=== PATIENT | female | born 1960 | race Caucasian/White ===

== ENCOUNTER 2017-01-20 15:58 | Emergency (ER) | payer OTHER ==
[~2017-01-20] VITALS: Ht 162.6 cm; Wt 70.8 kg
[~2017-01-20 15:58] MED LIST: ALPR.5T PO; ESTR0.5T PO; IBP800T PO; LACT1CAP39 PO
[2017-01-20] MEDS ORDERED: CEFD300C3 (16:05)
--- NOTE | 2017-01-20 16:10 | ED GU-Female ---
General Chief Complaint: -Female Stated Complaint: BLADDER INFECTION Source: patient Exam Limitations: no limitations History of Present Illness Time seen by provider: 16:08 Initial Comments To ER with reports of a bladder infection. She states that this began on Sunday with low back pain, suprapubic pain, dysuria. She was seen on Sunday with the [facility] in [place]. She was initially given Cipro for urinary tract infection. Urine was sent for culture. No improvement so she went back on the and her antibiotic was changed to Omnicef. She still reports no improvement in the suprapubic pain and dysuria. She remains on Omnicef and Pyridium without improvement. No fevers or chills. No nausea or vomiting. She still states that she has a poor appetite. She also has bilateral flank pain. Timing/Duration: week, getting worse Severity/Quality: moderate Location: suprapubic, right flank, left flank Radiation: suprapubic, right flank, left flank Activities at Onset: none Prior Genitourinary Problems: none Allergies and Home Medications Allergies Coded Allergies: Metronidazole (Verified Allergy, Unknown, 10/07/09) Home Medications Alprazolam 0.5 Mg Tablet, 1 TAB PO DAILY, (Reported) Cefdinir 300 Mg Capsule, (Reported) Estradiol 0.5 Mg Tablet, 0.25 MG PO DAILY, (Reported) Ibuprofen 800 Mg Tab, 800 MG PO DAILY, (Reported) Lactobacillus Rhamnosus 1 Cap Capsule, 1 CAP PO DAILY, (Reported) Constitutional: see HPI EENTM: see HPI Respiratory: no symptoms reported Cardiovascular: no symptoms reported Genitourinary: no symptoms reported Musculoskeletal: no symptoms reported Skin: no symptoms reported Psychiatric/Neurological: No Symptoms Reported Past Qgtnimn-Pobyhe-Gfoqmf Hx Patient Social History Recent Foreign Travel: No Contact w/Someone Who Travel: No Reproductive System Hx Reproductive Disorders: No Physical Exam Vital Signs Vital Sign - Last 12Hours 01/20/17 16:02 Temp 99.1 Pulse 94 Resp 10 B/P (MAP) 139/86 Pulse Ox 96 O2 Delivery Room Air Capillary Refill : General Appearance: WD/WN, no apparent distress HEENT: PERRL/EOMI, normal ENT inspection Neck: non-tender, full range of motion Respiratory: normal breath sounds, no respiratory distress, no accessory muscle use Gastrointestinal: normal bowel sounds, non tender, soft Back: CVA tenderness (R), CVA tenderness (L) Extremities: normal range of motion, non-tender Neurologic/Psychiatric: alert, normal mood/affect, oriented x 3 Skin: normal color, warm/dry Progress/Results/Core Measures Results/Orders Lab Results Laboratory Tests Test 01/20/17 16:10 01/20/17 16:21 Range/Units Urine Color ORANGE Urine Clarity CLEAR Urine pH 6 5-9 Urine Specific Lindsay 1.020 1.016-1.022 Urine Protein 1+ H NEGATIVE Urine Glucose (UA) NEGATIVE NEGATIVE Urine Ketones NEGATIVE NEGATIVE Urine Nitrite POSITIVE H NEGATIVE Urine Bilirubin 3+ H NEGATIVE Urine Urobilinogen 12 H NORMAL MG/DL Urine Leukocyte Esterase NEGATIVE NEGATIVE Urine RBC (Auto) 1+ H NEGATIVE Urine RBC RARE /HPF Urine WBC NONE /HPF Urine Squamous Epithelial Cells 0-2 /HPF Urine Crystals NONE /LPF Urine Bacteria NEGATIVE /HPF Urine Casts NONE /LPF Urine Mucus NEGATIVE /LPF Urine Culture Indicated YES White Blood Count 13.3 H 4.3-11.0 10^3/uL Red Blood Count 4.60 4.35-5.85 10^6/uL Hemoglobin 14.4 11.5-16.0 G/DL Hematocrit 41 35-52 % Mean Corpuscular Volume 89 80-99 FL Mean Corpuscular Hemoglobin 31 25-34 PG Mean Corpuscular Hemoglobin Concent 35 32-36 G/DL Red Cell Distribution Width 13.2 10.0-14.5 % Platelet Count 233 130-400 10^3/uL Mean Platelet Volume 9.7 7.4-10.4 FL Neutrophils (%) (Auto) 61 42-75 % Lymphocytes (%) (Auto) 32 12-44 % Monocytes (%) (Auto) 6 0-12 % Eosinophils (%) (Auto) 1 0-10 % Basophils (%) (Auto) 0 0-10 % Neutrophils # (Auto) 8.1 H 1.8-7.8 X 10^3 Lymphocytes # (Auto) 4.2 H 1.0-4.0 X 10^3 Monocytes # (Auto) 0.8 0.0-1.0 X 10^3 Eosinophils # (Auto) 0.2 0.0-0.3 10^3/uL Basophils # (Auto) 0.0 0.0-0.1 10^3/uL Sodium Level 141 135-145 MMOL/L Potassium Level 3.4 L 3.6-5.0 MMOL/L Chloride Level 109 H 98-107 MMOL/L Carbon Dioxide Level 22 21-32 MMOL/L Anion Gap 10 5-14 MMOL/L Blood Urea Nitrogen 12 7-18 MG/DL Creatinine 0.98 0.60-1.30 MG/DL Estimat Glomerular Filtration Rate 59 BUN/Creatinine Ratio 12 Glucose Level 96 70-105 MG/DL Calcium Level 9.2 8.5-10.1 MG/DL Total Bilirubin 0.3 0.1-1.0 MG/DL Aspartate Amino Transf (AST/SGOT) 13 5-34 U/L Alanine Aminotransferase (ALT/SGPT) 15 0-55 U/L Alkaline Phosphatase 84 40-136 U/L Total Protein 6.6 6.4-8.2 GM/DL Albumin 3.9 3.2-4.5 GM/DL My Orders Orders - MYA ARORA POWER BRAKE REBUILDER Cbc With Automated Diff (01/20/17 16:07) Comprehensive Metabolic Panel (01/20/17 16:07) Ua Culture If Indicated (01/20/17 16:07) Saline Lock/Iv-Start (01/20/17 16:07) Ketorolac Injection (Toradol Injection) (01/20/17 16:15) Ns Iv 1000 Ml (Sodium Chloride 0.9%) (01/20/17 16:15) Urine Culture (01/20/17 16:10) Ct Abd/Pelvis Wo(Kidney Stone) (01/20/17 16:28) Amoxicillin/Clavulanate Tablet (Augmenti (01/20/17 17:15) Ondansetron Injection (Zofran Injectio (01/20/17 17:15) Hydrocodone/Apap 5/325 Tablet (Lortab 5 (01/20/17 17:15) Medications Given in ED Current Medications Medications Dose Ordered Sig/Erika Route Start Time Stop Time Status Last Admin Dose Admin Ketorolac Tromethamine 30 mg ONCE ONCE IVP 01/20/17 16:15 01/20/17 16:16 DC 01/20/17 16:24 30 MG Vital Signs/I&O Vital Sign - Last 12Hours 01/20/17 16:02 Temp 99.1 Pulse 94 Resp 10 B/P (MAP) 139/86 Pulse Ox 96 O2 Delivery Room Air Diagnostic Imaging Diagonstic Imaging: CT Comments NAME: NATALIYA [facility]LAN [facility] REC#: [id number] PT STATUS: REG ER : 1960 PHYSICIAN: MYA ARORA APRN ADMIT DATE: 01/20/17/ER Draft Date of Exam:01/20/17 CT ABD/PELVIS WO(KIDNEY STONE) PROCEDURE: CT urinary tract, rule out kidney stone. TECHNIQUE: Multiple contiguous axial images were obtained through the abdomen and pelvis without the use of intravenous contrast. INDICATION: Lower abdominal pain and bilateral flank pain. Comparison is made study of 08/31/2009. FINDINGS: Prominent interstitial markings are seen in the dependent portion of both lower lobes which may be due to mild edema and/or pneumonitis versus developing fibrosis. Unenhanced images of the liver again demonstrate probable cyst in the lateral segment of the left lobe without other change. Gallbladder is surgically absent. There is no evidence of pancreatic or splenic abnormality. There is enlargement of the left adrenal gland which has not significantly changed. Right adrenal gland is stable and unremarkable. Evaluation of the kidneys is limited without intravenous contrast however, there is no evidence of renal calculus, mass or hydronephrosis. No ureteric stone is appreciated. There is yuqj-dk-tydfneln edema and/or inflammation surrounding the descending colon however, no free air or organized fluid collection is identified. There are numerous diverticula involving primarily the left colon. No free fluid is identified. IMPRESSION: Inflammation of the left colon suggest probable acute diverticulitis without evidence of perforation or abscess. There is no evidence of urinary tract calculus or pelvic abnormality. There is mild increase in probable interstitial edema and/or pneumonitis visualized in the lung bases. Dictated on workstation # [id number] Dict: 01/20/17 1703 Trans: 01/20/17 1723 [id number] Interpreted by: RUSS LAM MD Electronically signed by: Departure Impression Impression: Primary Impression: Sigmoid diverticulitis Disposition: 01 HOME, SELF-CARE Condition: Stable Departure-Patient Inst. Decision time for Depature: 17:19 Referrals: BETTY IVY APRN (PCP/Family) Primary Care Physician Patient Instructions: Diverticulitis Add. Discharge Instructions: 1. Medication as directed 2. Follow-up with your doctor later this week 3. Return to ER for any concerns All discharge instructions reviewed with patient and/or family. Voiced understanding. Scripts Ondansetron (Zofran Odt) 8 Mg Tab.rapdis 8 MG PO Q6H Y for NAUSEA/VOMITING-1ST LINE, #10 TAB Prov: MYA ARORA APRN 01/20/17 Hydrocodone/Acetaminophen ([place] 5-325 Tablet) 1 Each Tablet 1 EACH PO Q6H Y for PAIN-MODERATE TO SEVERE, #14 TAB Prov: MYA ARORA APRN 01/20/17 Lactobacillus Rhamnosus GG (Culturelle) 1 Each Capsule 1 EACH PO BID, #30 CAP Prov: MYA ARORA APRN 01/20/17 Amoxicillin/Potassium Clav (Augmentin 875-125 Tablet) 1 Each Tablet 1 EACH PO BID, #14 TAB Prov: MYA ARORA APRN 01/20/17 MYA ARORA APRN Jan 20, 2017 16:10
[2017-01-20 16:17] LABS: KETONES,URINE NEGATIVE (NEGATIVE); LEUKOCYTE ESTERASE ,URINE NEGATIVE (NEGATIVE); NITRITE,URINE POSITIVE (NEGATIVE); PH,URINE 6 (5-9); PROTEIN,URINE 1+ (NEGATIVE); UROBILINOGEN,URINE 12 MG/DL (NORMAL)
[2017-01-20 16:21] LABS: BILIRUBIN,URINE 3+ (NEGATIVE)
[2017-01-20 16:23] LABS: SQUAMOUS EPITHELIAL CELL,UR 0-2 /HPF
[2017-01-20] MEDS: KETOROLAC 30 MG/ML VIAL IVP ONE (16:24)
[2017-01-20] MEDS: NS IV 1000 ML 1,000 ML IV SCH (16:24)
[2017-01-20 16:26] LABS: BASOPHILS % (AUTO) 0 % (0-10); EOSINOPHILS # (AUTO) 0.2 10^3/uL (0.0-0.3); EOSINOPHILS % (AUTO) 1 % (0-10); LYMPHOCYTES # (AUTO) 4.2 X 10^3 (1.0-4.0); LYMPHOCYTES % (AUTO) 32 % (12-44); MEAN CORPUSCULAR HEMOGLOBIN 31 PG (25-34); MEAN CORPUSCULAR HGB CONC 35 G/DL (32-36); MEAN CORPUSCULAR VOLUME 89 FL (80-99); MEAN PLATELET VOLUME 9.7 FL (7.4-10.4); MONOCYTES # (AUTO) 0.8 X 10^3 (0.0-1.0); MONOCYTES % (AUTO) 6 % (0-12); NEUTROPHILS # (AUTO) 8.1 X 10^3 (1.8-7.8); NEUTROPHILS % (AUTO) 61 % (42-75); PLATELET COUNT 233 10^3/uL (130-400); RED CELL DISTRIBUTION WIDTH 13.2 % (10.0-14.5); WHITE BLOOD COUNT 13.3 10^3/uL (4.3-11.0)
[2017-01-20 16:46] LABS: ALBUMIN 3.9 GM/DL (3.2-4.5); BILIRUBIN,TOTAL 0.3 MG/DL (0.1-1.0); CALCIUM 9.2 MG/DL (8.5-10.1); CREATININE SERUM 0.98 MG/DL (0.60-1.30); POTASSIUM 3.4 MMOL/L (3.6-5.0); TOTAL PROTEIN 6.6 GM/DL (6.4-8.2)
--- NOTE | 2017-01-20 17:23 | Diagnostic Imaging Report ---
PROCEDURE: CT urinary tract, rule out kidney stone. TECHNIQUE: Multiple contiguous axial images were obtained through the abdomen and pelvis without the use of intravenous contrast. INDICATION: Lower abdominal pain and bilateral flank pain. Comparison is made study of 08/31/2009. FINDINGS: Prominent interstitial markings are seen in the dependent portion of both lower lobes which may be due to mild edema and/or pneumonitis versus developing fibrosis. Unenhanced images of the liver again demonstrate probable cyst in the lateral segment of the left lobe without other change. Gallbladder is surgically absent. There is no evidence of pancreatic or splenic abnormality. There is enlargement of the left adrenal gland which has not significantly changed. Right adrenal gland is stable and unremarkable. Evaluation of the kidneys is limited without intravenous contrast however, there is no evidence of renal calculus, mass or hydronephrosis. No ureteric stone is appreciated. There is qfwi-ko-fetxxnhe edema and/or inflammation surrounding the descending colon however, no free air or organized fluid collection is identified. There are numerous diverticula involving primarily the left colon. No free fluid is identified. IMPRESSION: Inflammation of the left colon suggest probable acute diverticulitis without evidence of perforation or abscess. There is no evidence of urinary tract calculus or pelvic abnormality. There is mild increase in probable interstitial edema and/or pneumonitis visualized in the lung bases. Dictated by: Dictated on workstation # [id number]
[2017-01-20] MEDS ORDERED: AMOX-358 PO (17:27)
[2017-01-20] MEDS ORDERED: LACT1CAP39 PO (17:27)
[2017-01-20] MEDS ORDERED: HYDR-757 PO (17:27)
[2017-01-20] MEDS ORDERED: ONDA8TAB9 PO (17:27)
[2017-01-20] MEDS: ONDANSETRON 4 MG/2 ML (SDV) Z0FRAN IVP ONE (17:29)
[2017-01-20] MEDS: HYDROcodone/APAP 5 MG/325 MG (LORTAB) TAB PO ONE (17:29)
[2017-01-20] MEDS: AUGMENTIN 875 MG TAB (AMOXICILLIN/CLAVULANATE) PO SCH (17:29)
[2017-01-20] MEDS ORDERED: RX-AMOX/CLAV. (AUGMENTIN) 500MG TAB PPK#2 PO STA (17:39)
[2017-01-20 17:49] VITALS: BP 116/84
--- OUTSIDE RECORDS SUMMARY | 2017-01-22 10:19 | XMS REPORT ---
Author Author ANDRAE EDMONDSON Organization [employer] Address Unknown Phone Unavailable Care Team Providers Care Materials Handling Equipment Operator Name Role Phone ANDRAE EDMONDSON CP Unavailable Allergies, Adverse Reactions, Alerts Substance Reaction Event Type Flagyl anaphylaxis Drug Allergy Venlafaxine 37.5 Mg Tablet diarrhea Non Drug Allergy Problems Problem Type Condition ICD-9 Code Onset Dates Condition Status Problem Dysthymic disorder 300.4 Active Problem Unspecified genital herpes 054.10 Active Problem Muscle spasm of back 724.8 Active Problem Pain in joint, shoulder region 719.41 Active Assessment Muscle spasm of back 724.8 Active Medications Medication Code System Code Instructions Start Date End Date Status Dosage Meloxicam [facility] [address]-91 7.5 MG Orally Once a day Jan 27, 2015 1 tablet Vitamin D3 [facility] [address] 2,000 unit Mar 03, 2013 1 time per day Fluoxetine [facility] [address]-92 40 mg August 04, 2014 2 Capsule by Oral route 1 time per day Valtrex [facility] [address]-17 1 gram August 04, 2014 Take 1 Tablet by Oral route 1 time per day Flexeril [facility] [address]-05 10 MG Orally Three times a day Jan 27, 2015 1 tablet Omeprazole [facility] [address]-61 20 MG August 04, 2014 take 1 capsule ( 20 mg) by oral route once daily before a meal Procedures Procedure Coding System Code Date Office Visit, Est Pt., Level 3 CPT-4 20313 Jan 27, 2015 Results No Known Results Summary Purpose [employer] Submission
--- OUTSIDE RECORDS SUMMARY | 2017-01-22 10:19 | XMS REPORT ---
Author Author ANDRAE EDMONDSON Organization [employer] Address Unknown Phone Unavailable Care Team Providers Care Groundskeeper Porter Name Role Phone ANDRAE EDMONDSON CP Unavailable Allergies No Known Allergies Problems Problem Type Condition Code Onset Dates Condition Status Problem Dysthymic disorder 300.4 Active Problem Unspecified genital herpes 054.10 Active Problem Muscle spasm of back 724.8 Active Problem Pain in joint, shoulder region 719.41 Active Medications Medication Code System Code Instructions Start Date End Date Status Dosage Omeprazole [facility] [address]-97 20 MG Orally Once a day August 04, 2014 take 1 capsule Results No Known Results Summary Purpose [employer] Submission
--- OUTSIDE RECORDS SUMMARY | 2017-01-22 10:19 | XMS REPORT ---
Author Author ANDRAE EDMONDSON Organization [employer] Address Unknown Phone Unavailable Care Team Providers Care Battery Repairer Name Role Phone ANDRAE EDMONDSON CP Unavailable Allergies No Known Allergies Problems Problem Type Condition Code Onset Dates Condition Status Problem Dysthymic disorder 300.4 Active Problem Unspecified genital herpes 054.10 Active Problem Muscle spasm of back 724.8 Active Problem Pain in joint, shoulder region 719.41 Active Assessment Encounter for immunization Z23 Active Medications No Known Medications Procedures Procedure Coding System Code Date SINGLE IMMUNIZATION ADMIN CPT-4 24440 Mar 22, 2015 FLUARIX QUAD (3 & UP)-GSK-2014 CPT-4 19009 Mar 22, 2015 Results No Known Results Immunizations Vaccine Administration Date FLUARIX QUAD (3 & UP)-GSK-2014Mar 22, 2015 Summary Purpose [employer] Submission
--- OUTSIDE RECORDS SUMMARY | 2017-01-22 10:19 | XMS REPORT | Continuity of Care Document ---
Author Author [facility] Address Unknown Phone Unavailable Allergies Active Description Code Type Severity Reaction Onset Reported/Identified Relationship to Patient Clinical Status Yes Flagyl Drug Allergy N/A N/A 03/03/2013 Yes venlafaxine 37.5 mg tablet Drug Allergy N/A N/A 10/21/2013 Medications Problems Date Dx Coded Attending Type Code Diagnosis Diagnosed By 12/10/2007 WOODS DO, KATIA K 300.00 ANXIETY 12/10/2007 WOODS DO, KATIA K 300.00 ANXIETY 12/10/2007 COMFORT HURLEY DDS 300.00 ANXIETY 12/10/2007 WOODS DO, KATIA K 300.00 ANXIETY 12/10/2007 WOODS DO, KATIA K 300.00 ANXIETY 12/10/2007 WOODS DO, KATIA K 300.00 ANXIETY 12/10/2007 ANDRAE EDMONDSON APRN 300.00 ANXIETY 12/10/2007 WOODS DO, KATIA K 300.00 ANXIETY 12/10/2007 WOODS DO, KATIA K 300.00 ANXIETY 12/10/2007 WOODS DO, KATIA K 300.00 ANXIETY 12/10/2007 ANDRAE EDMONDSON APRN 300.00 ANXIETY 12/10/2007 WOODS DO, KATIA K 300.00 ANXIETY 12/10/2007 WOODS DO, KATIA K 300.00 ANXIETY 05/19/2008 WOODS DO, KATIA K 112.3 CANDIDIASIS SKIN AND NAILS 05/19/2008 WOODS DO, KATIA K 616.10 VAGINITIS AND VULVOVAGINITIS UNSPECIFIED 05/19/2008 WOODS DO, KATIA K 112.3 CANDIDIASIS SKIN AND NAILS 05/19/2008 WOODS DO, KATIA K 616.10 VAGINITIS AND VULVOVAGINITIS UNSPECIFIED 05/19/2008 COMFORT HURLEY DDS 112.3 CANDIDIASIS SKIN AND NAILS 05/19/2008 COMFORT HURLEY DDS 616.10 VAGINITIS AND VULVOVAGINITIS UNSPECIFIED 05/19/2008 PEGGY BUTTS KATIA K 112.3 CANDIDIASIS SKIN AND NAILS 05/19/2008 PEGGY BUTTS KATIA K 616.10 VAGINITIS AND VULVOVAGINITIS UNSPECIFIED 05/19/2008 PEGGY BUTTS KATIA K 112.3 CANDIDIASIS SKIN AND NAILS 05/19/2008 WOODS DO KATIA K 616.10 VAGINITIS AND VULVOVAGINITIS UNSPECIFIED 05/19/2008 PEGGY BUTTS KATIA K 112.3 CANDIDIASIS SKIN AND NAILS 05/19/2008 KELSEY WOODS DOA K 616.10 VAGINITIS AND VULVOVAGINITIS UNSPECIFIED 05/19/2008 ANDRAE EDMONDSON APRN 112.3 CANDIDIASIS SKIN AND NAILS 05/19/2008 ANDRAE EDMONDSON APRN 616.10 VAGINITIS AND VULVOVAGINITIS UNSPECIFIED 05/19/2008 KELSEY WOODS DOA K 112.3 CANDIDIASIS SKIN AND NAILS 05/19/2008 KELSEY WOODS DOA K 616.10 VAGINITIS AND VULVOVAGINITIS UNSPECIFIED 05/19/2008 KELSEY WOODS DOA K 112.3 CANDIDIASIS SKIN AND NAILS 05/19/2008 KELSEY WOODS DOA K 616.10 VAGINITIS AND VULVOVAGINITIS UNSPECIFIED 05/19/2008 KELSEY WOODS DOA K 112.3 CANDIDIASIS SKIN AND NAILS 05/19/2008 KELSEY WOODS DOA K 616.10 VAGINITIS AND VULVOVAGINITIS UNSPECIFIED 05/19/2008 ANDRAE EDMONDSON APRN R 112.3 CANDIDIASIS SKIN AND NAILS 05/19/2008 ANDRAE EDMONSDON APRN 616.10 VAGINITIS AND VULVOVAGINITIS UNSPECIFIED 05/19/2008 PEGGY BUTTS KATIA K 112.3 CANDIDIASIS SKIN AND NAILS 05/19/2008 PEGGY BUTTS KATIA K 616.10 VAGINITIS AND VULVOVAGINITIS UNSPECIFIED 05/19/2008 PEGGY BUTTS KATIA K 112.3 CANDIDIASIS SKIN AND NAILS 05/19/2008 PEGGY BUTTS KATIA K 616.10 VAGINITIS AND VULVOVAGINITIS UNSPECIFIED 06/10/2008 PEGGY BUTTS KATIA K 599.70 HEMATURIA, UNSPECIFIED 06/10/2008 KELSEY WOODS DOA K 789.00 COLIC INFANTILE 06/10/2008 WOODS DO, KATIA K 599.70 HEMATURIA, UNSPECIFIED 06/10/2008 WOODS DO, KATIA K 789.00 COLIC INFANTILE 06/10/2008 XAVI ORTIZS, COMFORT Perez 599.70 HEMATURIA, UNSPECIFIED 06/10/2008 XAVI DDS, COMFORT Perez 789.00 COLIC INFANTILE 06/10/2008 WOODS DO, KATIA K 599.70 HEMATURIA, UNSPECIFIED 06/10/2008 WOODS DO, KATIA K 789.00 COLIC INFANTILE 06/10/2008 WOODS DO, KATIA K 599.70 HEMATURIA, UNSPECIFIED 06/10/2008 WOODS DO, KATIA K 789.00 COLIC INFANTILE 06/10/2008 WOODS DO, KATIA K 599.70 HEMATURIA, UNSPECIFIED 06/10/2008 WOODS DO, KATIA K 789.00 COLIC INFANTILE 06/10/2008 ANDRAE EDMONDSON APRN 599.70 HEMATURIA, UNSPECIFIED 06/10/2008 ANDREA EDMONDSON APRN 789.00 COLIC INFANTILE 06/10/2008 WOODS DO, KATIA K 599.70 HEMATURIA, UNSPECIFIED 06/10/2008 WOODS DO, KATIA K 789.00 COLIC INFANTILE 06/10/2008 WOODS DO, KATIA K 599.70 HEMATURIA, UNSPECIFIED 06/10/2008 WOODS DO, KATIA K 789.00 COLIC INFANTILE 06/10/2008 WOODS DO, KATIA K 599.70 HEMATURIA, UNSPECIFIED 06/10/2008 WOODS DO, KATIA K 789.00 COLIC INFANTILE 06/10/2008 ANDRAE EDMONDSON APRN 599.70 HEMATURIA, UNSPECIFIED 06/10/2008 ANDRAE EDMONDSON APRN 789.00 COLIC INFANTILE 06/10/2008 WOODS DO, KATIA K 599.70 HEMATURIA, UNSPECIFIED 06/10/2008 WOODS DO, KATIA K 789.00 COLIC INFANTILE 06/10/2008 WOODS DO, KATIA K 599.70 HEMATURIA, UNSPECIFIED 06/10/2008 WOODS DO, KATIA K 789.00 COLIC INFANTILE 02/07/2013 WOODS DO, KATIA K V04.81 FLU SHOT 02/07/2013 WOODS DO, KATIA K V04.81 FLU SHOT 02/07/2013 XAVI ORTIZS, COMFORT Perez V04.81 FLU SHOT 02/07/2013 WOODS DO, KATIA K V04.81 FLU SHOT 02/07/2013 WOODS DO, KATIA K V04.81 FLU SHOT 02/07/2013 WOODS DO, KATIA K V04.81 FLU SHOT 02/07/2013 ANDRAE EDMONDSON APRN V04.81 FLU SHOT 02/07/2013 WOODS DO, KATIA K V04.81 FLU SHOT 02/07/2013 WOODS DO, KATIA K V04.81 FLU SHOT 02/07/2013 WOODS DO, KATIA K V04.81 FLU SHOT 02/07/2013 ANDRAE EDMONDSON APRN V04.81 FLU SHOT 02/07/2013 WOODS DO, KATIA K V04.81 FLU SHOT 02/07/2013 WOODS DO, KATIA K V04.81 FLU SHOT 03/03/2013 WOODS DO, KATIA K 599.0 URINARY TRACT INFECTION 03/03/2013 WOODS DO, KATIA K 599.0 URINARY TRACT INFECTION 03/03/2013 COMFORT HURLEY DDS 599.0 URINARY TRACT INFECTION 03/03/2013 WOODS DO, KATIA K 599.0 URINARY TRACT INFECTION 03/03/2013 WOODS DO, KATIA K 599.0 URINARY TRACT INFECTION 03/03/2013 WOODS DO, KATIA K 599.0 URINARY TRACT INFECTION 03/03/2013 ANDRAE EDMONDSON APRN 599.0 URINARY TRACT INFECTION 03/03/2013 WOODS DO, KATIA K 599.0 URINARY TRACT INFECTION 03/03/2013 WOODS DO, KATIA K 599.0 URINARY TRACT INFECTION 03/03/2013 WOODS DO, KATIA K 599.0 URINARY TRACT INFECTION 03/03/2013 ANDRAE EDMONDSON APRN 599.0 URINARY TRACT INFECTION 03/03/2013 WOODS DO, KATIA K 599.0 URINARY TRACT INFECTION 03/03/2013 WOODS DO, KATIA K 599.0 URINARY TRACT INFECTION 08/08/2013 WOODS DO, KATIA K 596.89 OTHER SPECIFIED DISORDERS OF BLADDER 08/08/2013 WOODS DO, KATIA K 596.89 OTHER SPECIFIED DISORDERS OF BLADDER 08/08/2013 WOODS DO, KATIA K 596.89 OTHER SPECIFIED DISORDERS OF BLADDER 08/08/2013 ANDRAE EDMONDSON APRN 596.89 OTHER SPECIFIED DISORDERS OF BLADDER 08/08/2013 KATIA WOODS DO 596.89 OTHER SPECIFIED DISORDERS OF BLADDER 08/08/2013 KATIA WOODS DO 596.89 OTHER SPECIFIED DISORDERS OF BLADDER 08/08/2013 WOODS DOKATIA 596.89 OTHER SPECIFIED DISORDERS OF BLADDER 08/08/2013 ANDRAE EDMONDSON APRN 596.89 OTHER SPECIFIED DISORDERS OF BLADDER 08/08/2013 KATIA WOODS DO 596.89 OTHER SPECIFIED DISORDERS OF BLADDER 08/08/2013 WOODS DOKATIA 596.89 OTHER SPECIFIED DISORDERS OF BLADDER 09/18/2013 PEGGY DOKATIA V06.1 TDAP DX 09/18/2013 ANDRAE EDMONDSON APRN V06.1 TDAP DX 09/18/2013 WOODS DOKATIA V06.1 TDAP DX 09/18/2013 WOODS DOKATIA V06.1 TDAP DX 09/18/2013 WOODS DOKATIA V06.1 TDAP DX 09/18/2013 ANDRAE EDMONDSON APRN V06.1 TDAP DX 09/18/2013 WOODS DOKATIA V06.1 TDAP DX 09/18/2013 WOODS DOKATIA V06.1 TDAP DX 01/29/2014 KATIA WOODS DO 054.10 HERPES SIMPLEX GENITAL 01/29/2014 ANDRAE EDMONDSON APRN 054.10 HERPES SIMPLEX GENITAL 01/29/2014 KATIA WOODS DO 054.10 HERPES SIMPLEX GENITAL 01/29/2014 KATIA WOODS DO 054.10 HERPES SIMPLEX GENITAL 06/03/2014 KATIA WOODS DO 719.41 PAIN- SHOULDER 06/03/2014 KATIA WOODS DO 719.41 PAIN- SHOULDER Procedures Code [place] [address] UA LONG DIP 03/03 51991 UA LONG DIP 03/17 98161 UA LONG DIP 08/08 44612 UA LONG DIP 11/10 Results Encounters ACCT No. Visit Date/Time Discharge Status Pt. Type Provider Facility Loc./Unit Complaint [id number] 07/08/2014 15:55:00 07/08/2014 23: 59:59 CLS Outpatient KATIA WOODS DO [id number] 06/03/2014 16:10:00 06/03/2014 23: 59:59 CLS Outpatient WOODS DOKATIA [id number] 03/03/2014 16:26:00 03/03/2014 23: 59:59 CLS Outpatient ANDRAE EDMONDSON APRN Sussy [id number] 01/29/2014 15:58:00 01/29/2014 23: 59:59 CLS Outpatient WOODS DOKATIA [id number] 12/29/2013 15:58:00 12/29/2013 23: 59:59 CLS Outpatient WOODS DOKATIA [id number] 11/10/2013 16:06:00 11/10/2013 23: 59:59 CLS Outpatient WOODS DOKATIA [id number] 10/21/2013 15:39:00 10/21/2013 23: 59:59 CLS Outpatient ANDRAE EDMONDSON APRN Sussy [id number] 09/18/2013 16:45:00 09/18/2013 23: 59:59 CLS Outpatient WOODS DOKATIA [id number] 08/21/2013 08:45:00 08/21/2013 23: 59:59 CLS Outpatient WOODS DOKATIA [id number] 08/08/2013 08:16:00 08/08/2013 23: 59:59 CLS Outpatient WOODS DOKATIA [id number] 05/29/2013 15:30:00 05/29/2013 23: 59:59 CLS Outpatient XAVI COMFORT AVILA [id number] 03/17/2013 16:21:00 03/17/2013 23: 59:59 CLS Outpatient WOODS DOKATIA [id number] 03/03/2013 15:12:00 03/03/2013 23: 59:59 CLS Outpatient WOODS DOKATIA
== END 2017-01-20 17:48 | disposition home or self-care (01) ==
LOC: EDUNIT# 15:58 → ER 16:01
DX: K57.32 Diverticulitis of large intestine without perforation or abscess without bleeding (principal)
CPT/HCPCS: 36415; 74176; 80053; 81000; 85025; 87088

== ENCOUNTER 2017-01-27 11:46 | Inpatient (IN) | payer OTHER ==
[~2017-01-27] VITALS: Ht 162.6 cm; Wt 67.2 kg
[~2017-01-27 11:46] MED LIST changes: +AMOX-358 PO; +CEFD300C3; +HYDR-757 PO; +ONDA8TAB9 PO
[2017-01-27] MEDS ORDERED: PHEN-827 PO (12:10)
[2017-01-27 12:20] LABS: BILIRUBIN,URINE NEGATIVE (NEGATIVE); KETONES,URINE NEGATIVE (NEGATIVE); LEUKOCYTE ESTERASE ,URINE NEGATIVE (NEGATIVE); NITRITE,URINE NEGATIVE (NEGATIVE); PH,URINE 8 (5-9); PROTEIN,URINE NEGATIVE (NEGATIVE); UROBILINOGEN,URINE NORMAL (NORMAL)
[2017-01-27] MEDS ORDERED: NS IV 1000 ML 1,000 ML IV ONE (12:45)
[2017-01-27] MEDS ORDERED: fentaNYL INJECTION 100 MCG/2 ML AMP IVP ONE ×2 (12:45→14:15)
[2017-01-27 12:51] LABS: BASOPHILS % (AUTO) 0 % (0-10); EOSINOPHILS # (AUTO) 0.1 10^3/uL (0.0-0.3); EOSINOPHILS % (AUTO) 1 % (0-10); LYMPHOCYTES # (AUTO) 3.5 X 10^3 (1.0-4.0); LYMPHOCYTES % (AUTO) 29 % (12-44); MEAN CORPUSCULAR HEMOGLOBIN 30 PG (25-34); MEAN CORPUSCULAR HGB CONC 35 G/DL (32-36); MEAN CORPUSCULAR VOLUME 88 FL (80-99); MEAN PLATELET VOLUME 10.2 FL (7.4-10.4); MONOCYTES # (AUTO) 0.6 X 10^3 (0.0-1.0); MONOCYTES % (AUTO) 5 % (0-12); NEUTROPHILS % (AUTO) 66 % (42-75); PLATELET COUNT 299 10^3/uL (130-400); RED BLOOD COUNT 4.73 10^6/uL (4.35-5.85); RED CELL DISTRIBUTION WIDTH 12.6 % (10.0-14.5); WHITE BLOOD COUNT 12.3 10^3/uL (4.3-11.0)
[2017-01-27 13:03] LABS: ALANINE AMINOTRANSFERASE 23 U/L (0-55); ALBUMIN 4.1 GM/DL (3.2-4.5); ANION GAP 13 MMOL/L (5-14); ASPARTATE AMINO TRANSFERASE 17 U/L (5-34); BILIRUBIN,TOTAL 0.6 MG/DL (0.1-1.0); BLOOD UREA NITROGEN 12 MG/DL (7-18); BUN/CREATININE RATIO 14; CALCIUM 9.9 MG/DL (8.5-10.1); CARBON DIOXIDE 21 MMOL/L (21-32); CHLORIDE 106 MMOL/L (98-107); CREATININE SERUM 0.88 MG/DL (0.60-1.30); GFR ESTIMATED > 60; GLUCOSE 97 MG/DL (70-105); LIPASE 22 U/L (8-78); POTASSIUM 3.5 MMOL/L (3.6-5.0); SODIUM 140 MMOL/L (135-145); TOTAL PROTEIN 6.8 GM/DL (6.4-8.2); hs C REACTIVE PROTEIN 7.71 MG/DL (0.00-0.50)
--- NOTE | 2017-01-27 13:19 | Diagnostic Imaging Report ---
INDICATION: Lower abdominal pain. COMPARISON: None. FINDINGS: KUB and upright views of the abdomen demonstrate some minimally distended small bowel in the mid abdomen, probably ileus. Obstruction not excluded. There is no free air. The colon is decompressed. IMPRESSION: 1. Small bowel obstruction versus ileus. 2. No free air. 3. Postoperative changes within the pelvis and cholecystectomy. Dictated by: Dictated on workstation # [id number]
[2017-01-27] MEDS ORDERED: IOHEXOL 350 MG/ML 100 ML (OMNIPAQUE 350) VIAL IV ONE (14:15)
[2017-01-27] MEDS ORDERED: NS 100 ML (IVPB) BAG IV ONE (14:15)
--- NOTE | 2017-01-27 14:50 | Diagnostic Imaging Report ---
PROCEDURE: CT abdomen and pelvis with contrast. TECHNIQUE: Multiple contiguous axial images were obtained through the abdomen and pelvis after administration of intravenous contrast. INDICATION: Lower abdominal pain. COMPARISON: 01/20/2017. FINDINGS: Lung bases are clear. There is a benign liver cyst again seen. Otherwise, solid organs and vascular structures are normal. Gallbladder is surgically absent. The small bowel normal. There is some increasing inflammation in the left lower quadrant with bowel wall thickening consistent with worsening diverticulitis. There is no abscess. There is new trace free fluid in the pelvis. The uterus is surgically absent. Distal ureters and urinary bladder normal. There is no free air. Osseous structures are stable. IMPRESSION: 1. Worsening diverticulitis of the sigmoid colon without abscess or free air. 2. New minimal amount of ascites in the pelvis, likely reactive. 3. No bowel obstruction. Dictated by: Dictated on workstation # [id number]
--- NOTE | 2017-01-27 15:09 | ED Abdominal Pain ---
General Chief Complaint: -Female Stated Complaint: ABD PAIN, CANT URINATE Nursing Triage Note: Was here last week for same issue. C/O inability to urinate, pain to low back, burning. States colon was inflammed and bladder dropped. abd "bloated" Sepsis Screen: No Definite Risk Source of Information: Patient, Old Records Exam Limitations: No Limitations History of Present Illness Time Seen By Provider: 11:49 Initial Comments This 56-year-old woman presents to the emergency room with complaints of worsening abdominal pain and bloating after being diagnosed with diverticulitis on January 18 during a visit to the emergency room. CT scan was performed at that time. She has been on Augmentin for 6 days but her symptoms worsen despite. She also complains of difficulty urinating which has been a long-term problem for her and is exacerbated by this illness. She reports having to force her urine output. She states her bloating has become extreme. She thought she was constipated and took some laxatives. She had a large bowel movement a couple days ago followed by some diarrhea. She had a small amount of diarrhea this morning. She denies any hematochezia. Her last solid food was toast at 07:00. She has been drinking tea throughout the morning. She denies any fever. Allergies and Home Medications Allergies Coded Allergies: metronidazole (Verified Allergy, Unknown, 01/27/17) Home Medications Alprazolam 0.5 Mg Tablet, 1 TAB PO DAILY, (Reported) Amoxicillin/Potassium Clav 1 Each Tablet, 1 EACH PO BID, #14 Prescribed by: MYA ARORA on 01/20/171726 Estradiol 0.5 Mg Tablet, 0.25 MG PO DAILY, (Reported) Hydrocodone/Acetaminophen 1 Each Tablet, 1 EACH PO Q6H PRN for PAIN-MODERATE TO SEVERE, #14 Prescribed by: MYA ARORA on 01/20/171726 Ibuprofen 800 Mg Tab, 800 MG PO DAILY, (Reported) Lactobacillus Rhamnosus 1 Cap Capsule, 1 CAP PO DAILY, (Reported) Lactobacillus Rhamnosus GG 1 Each Capsule, 1 EACH PO BID, #30 Prescribed by: MYA ARORA on 01/20/171726 Ondansetron 8 Mg Tab.rapdis, 8 MG PO Q6H PRN for NAUSEA/VOMITING-1ST LINE, #10 Prescribed by: MYA ARORA on 01/20/171726 Phenazopyridine HCl 200 Mg Tablet, (Reported) Review of Systems Constitutional: no symptoms reported EENTM: No Symptoms Reported Respiratory: No Symptoms Reported Cardiovascular: No Symptoms Reported Gastrointestinal: See HPI Genitourinary: See HPI Musculoskeletal: no symptoms reported Skin: no symptoms reported Psychiatric/Neurological: No Symptoms Reported Endocrine: No Symptoms Reported Past Dmplqam-Joemgi-Rnxubs Hx Patient Social History Alcohol Use: Occasionally Uses Recreational Drug Use: No Smoking Status: Current Everyday Smoker Type Used: Cigarettes 2nd Hand Smoke Exposure: No Recent Foreign Travel: No Contact w/Someone Who Travel: No Recent Infectious Disease Expo: No Recent Hopitalizations: No Physical Abuse: No Sexual Abuse: No Mistreated: No Fear: No Immunizations Up To Date Tetanus Booster (TDap): Unknown Seasonal Allergies Seasonal Allergies: No Surgeries History of Surgeries: Yes Surgeries: Gallbladder, Hysterectomy, Orthopedic Respiratory History of Respiratory Disorde: No Cardiovascular History of Cardiac Disorders: No Neurological History of Neurological Disord: No Reproductive System Hx Reproductive Disorders: No Sexually Transmitted Disease: No Gastrointestinal History of Gastrointestinal Di: No Musculoskeletal History of Musculoskeletal Dis: Yes (ARTHRITIS) Endocrine History of Endocrine Disorders: No HEENT History of HEENT Disorders: No Cancer History of Cancer: No Psychosocial History of Psychiatric Problem: No Suicide Risk Score: 0 Integumentary History of Skin or Integumenta: No Blood Transfusions History of Blood Disorders: No Family Medical History Significant Family History: No Pertinent Family Hx Physical Exam Vital Signs VS - Last 72 Hours, by Label 01/27/17 12:02 Temp 98.0 Pulse 73 Resp 18 B/P (MAP) 120/70 Pulse Ox 99 Capillary Refill : Less Than 3 Seconds General Appearance: WD/WN, no apparent distress HEENT: PERRL/EOMI, normal ENT inspection Neck: normal inspection Respiratory: lungs clear, normal breath sounds, no respiratory distress, no accessory muscle use Cardiovascular: regular rate, rhythm, no edema, no murmur Gastrointestinal: normal bowel sounds, soft, distended, tenderness ( significant tenderness throughout the abdomen even with light percussion) Extremities: normal inspection, no pedal edema Back: normal inspection, no CVA tenderness Neurologic/Psychiatric: folded cloth taper II-XII nml as tested, no motor/sensory deficits, alert, normal mood/affect, oriented x 3 Skin: normal color, warm/dry Progress/Results/Core Measures Results/Orders Lab Results Laboratory Tests Test 01/27/17 12:00 01/27/17 12:15 Range/Units Urine Color YELLOW Urine Clarity CLEAR Urine pH 8 5-9 Urine Specific [place] 1.010 L 1.016-1.022 Urine Protein NEGATIVE NEGATIVE Urine Glucose (UA) NEGATIVE NEGATIVE Urine Ketones NEGATIVE NEGATIVE Urine Nitrite NEGATIVE NEGATIVE Urine Bilirubin NEGATIVE NEGATIVE Urine Urobilinogen NORMAL NORMAL MG/DL Urine Leukocyte Esterase NEGATIVE NEGATIVE Urine RBC (Auto) 2+ H NEGATIVE Urine RBC 2-5 H /HPF Urine WBC NONE /HPF Urine Squamous Epithelial Cells NONE /HPF Urine Crystals NONE /LPF Urine Bacteria TRACE /HPF Urine Casts NONE /LPF Urine Mucus NEGATIVE /LPF Urine Culture Indicated NO White Blood Count 12.3 H 4.3-11.0 10^3/uL Red Blood Count 4.73 4.35-5.85 10^6/uL Hemoglobin 14.4 11.5-16.0 G/DL Hematocrit 42 35-52 % Mean Corpuscular Volume 88 80-99 FL Mean Corpuscular Hemoglobin 30 25-34 PG Mean Corpuscular Hemoglobin Concent 35 32-36 G/DL Red Cell Distribution Width 12.6 10.0-14.5 % Platelet Count 299 130-400 10^3/uL Mean Platelet Volume 10.2 7.4-10.4 FL Neutrophils (%) (Auto) 66 42-75 % Lymphocytes (%) (Auto) 29 12-44 % Monocytes (%) (Auto) 5 0-12 % Eosinophils (%) (Auto) 1 0-10 % Basophils (%) (Auto) 0 0-10 % Neutrophils # (Auto) 8.0 H 1.8-7.8 X 10^3 Lymphocytes # (Auto) 3.5 1.0-4.0 X 10^3 Monocytes # (Auto) 0.6 0.0-1.0 X 10^3 Eosinophils # (Auto) 0.1 0.0-0.3 10^3/uL Basophils # (Auto) 0.0 0.0-0.1 10^3/uL Sodium Level 140 135-145 MMOL/L Potassium Level 3.5 L 3.6-5.0 MMOL/L Chloride Level 106 98-107 MMOL/L Carbon Dioxide Level 21 21-32 MMOL/L Anion Gap 13 5-14 MMOL/L Blood Urea Nitrogen 12 7-18 MG/DL Creatinine 0.88 0.60-1.30 MG/DL Estimat Glomerular Filtration Rate > 60 BUN/Creatinine Ratio 14 Glucose Level 97 70-105 MG/DL Calcium Level 9.9 8.5-10.1 MG/DL Total Bilirubin 0.6 0.1-1.0 MG/DL Aspartate Amino Transf (AST/SGOT) 17 5-34 U/L Alanine Aminotransferase (ALT/SGPT) 23 0-55 U/L Alkaline Phosphatase 83 40-136 U/L C-Reactive Protein High Sensitivity 7.71 H 0.00-0.50 MG/DL Total Protein 6.8 6.4-8.2 GM/DL Albumin 4.1 3.2-4.5 GM/DL Lipase 22 8-78 U/L My Orders Orders - QUE SMITH MD Ua Culture If Indicated (01/27/17 11:49) Cbc With Automated Diff (01/27/17 12:45) Comprehensive Metabolic Panel (01/27/17 12:45) Hs C Reactive Protein (01/27/17 12:45) Saline Lock/Iv-Start (01/27/17 12:45) Bladder Scan (01/27/17 12:45) Abdomen, Flat & Upright/Decub (01/27/17 12:45) Lipase (01/27/17 12:45) Ns Iv 1000 Ml (Sodium Chloride 0.9%) (01/27/17 12:45) Fentanyl Injection (Sublimaze Injection (01/27/17 12:45) Fentanyl Injection (Sublimaze Injection (01/27/17 14:15) Ct Abdomen/Pelvis W (01/27/17 14:13) Iohexol Injection (Omnipaque 350 Mg/Ml 1 (01/27/17 14:15) Ns (Ivpb) (Sodium Chloride 0.9% Ivpb Bag (01/27/17 14:15) Piperacillin Sodium/Tazobactam (Zosyn Vi (01/27/17 15:15) Ketorolac Injection (Toradol Injection) (01/27/17 15:15) Medications Given in ED Current Medications Medications Dose Ordered Sig/Erika Route Start Time Stop Time Status Last Admin Dose Admin Fentanyl Citrate 50 mcg ONCE ONCE IVP 01/27/17 12:45 01/27/17 12:48 DC 01/27/17 12:53 50 MCG Fentanyl Citrate 50 mcg ONCE ONCE IVP 01/27/17 14:15 01/27/17 14:16 DC 01/27/17 14:04 50 MCG Iohexol 100 ml ONCE ONCE IV 01/27/17 14:15 01/27/17 14:21 DC 01/27/17 14:26 100 ML Ketorolac Tromethamine 30 mg ONCE ONCE IVP 01/27/17 15:15 01/27/17 15:16 DC 01/27/17 15:32 30 MG Piperacillin Sod/ Tazobactam Sod 4.5 gm/Sodium Chloride 100 ml @ 200 mls/hr ONCE ONCE IV 01/27/17 15:15 01/27/17 15:44 DC 01/27/17 15:32 200 MLS/HR Sodium Chloride 100 ml ONCE ONCE IV 01/27/17 14:15 01/27/17 14:21 DC 01/27/17 14:26 80 ML Sodium Chloride 1,000 ml @ 0 mls/hr Q0M ONCE IV 01/27/17 12:45 01/27/17 12:48 DC 01/27/17 12:53 1,000 MLS/HR Vital Signs/I&O Vital Sign - Last 12Hours 01/27/17 12:02 Temp 98.0 Pulse 73 Resp 18 B/P (MAP) 120/70 Pulse Ox 99 Blood Pressure Mean: 87 Progress Note : Progress Note Patient's lab work revealed persistent signs of infection with leukocytosis and elevated CRP. KUB and upright was performed which was suggestive of ileus versus small bowel obstruction. Case was reviewed with Dr. Hernandez who advised repeating the CT scan. Repeat CT scan showed no evidence of ileus or obstruction but did demonstrate worsening diverticulitis. Patient was treated with fentanyl and Toradol. IV fluids were administered. Zosyn was started for initial antibiotic therapy. Cipro and Flagyl were not used as patient has a Flagyl allergy. Admission was felt appropriate as patient has worsening symptoms despite antibiotic therapy at home. Diagnostic Imaging Comments X-ray viewed by me and report reviewed. See report below: NAME: NATALIYA WHELAN [facility] REC#: [id number] PT STATUS: REG ER : 1960 PHYSICIAN: QUE SMITH MD ADMIT DATE: 01/27/17/ER Signed Date of Exam: 01/27/17 ABDOMEN, FLAT & UPRIGHT/DECUB INDICATION: Lower abdominal pain. COMPARISON: None. FINDINGS: KUB and upright views of the abdomen demonstrate some minimally distended small bowel in the mid abdomen, probably ileus. Obstruction not excluded. There is no free air. The colon is decompressed. IMPRESSION: 1. Small bowel obstruction versus ileus. 2. No free air. 3. Postoperative changes within the pelvis and cholecystectomy. Dictated by: Dictated on workstation # [id number] Dict: 01/27/17 1310 Trans: 01/27/17 1443 Interpreted by: LESLEY AMBROSIO Electronically signed by: LESLEY AMBROSIO 01/27/17 1444 Diagonstic Imaging: CT Plain Films/CT/US/NM/MRI: abdomen, pelvis Comments CT abdomen and pelvis viewed by me and report reviewed. See report below: NAME: NATALIYA WHELAN [facility] REC#: [id number] PT STATUS: REG ER : 1960 PHYSICIAN: QUE SMITH MD ADMIT DATE: 01/27/17/ER Draft Date of Exam:01/27/17 CT ABDOMEN/PELVIS W PROCEDURE: CT abdomen and pelvis with contrast. TECHNIQUE: Multiple contiguous axial images were obtained through the abdomen and pelvis after administration of intravenous contrast. INDICATION: Lower abdominal pain. COMPARISON: 01/20/2017. FINDINGS: Lung bases are clear. There is a benign liver cyst again seen. Otherwise, solid organs and vascular structures are normal. Gallbladder is surgically absent. The small bowel normal. There is some increasing inflammation in the left lower quadrant with bowel wall thickening consistent with worsening diverticulitis. There is no abscess. There is new trace free fluid in the pelvis. The uterus is surgically absent. Distal ureters and urinary bladder normal. There is no free air. Osseous structures are stable. IMPRESSION: 1. Worsening diverticulitis of the sigmoid colon without abscess or free air. 2. New minimal amount of ascites in the pelvis, likely reactive. 3. No bowel obstruction. Dictated on workstation # [id number] Dict: 01/27/17 1440 Trans: 01/27/17 1450 [id number] Interpreted by: LESLEY AMBROSIO Departure Communication (Admissions) Time/Spoke to Admitting Phy: 14:[address] Rodriguez Time/Spoke to Consulting Phy: 14:55 Communication/Consulting Dr. Hernandez Impression Impression: Primary Impression: Diverticulitis Qualified Codes: K57.32 - Diverticulitis of large intestine without perforation or abscess without bleeding Additional Impression: Abdominal pain Qualified Codes: R10.84 - Generalized abdominal pain Disposition: ADMITTED INPATIENT Condition: Improved Admissions Decision to Admit Reason: Admit from ER (General) Decision to Admit/Date: Jan 27, 2017 Time/Decision to Admit Time: 14:00 Departure-Patient Inst. Referrals: BETTY IVY APRN (PCP/Family) Primary Care Physician QUE SMITH MD Jan 27, 2017 15:08
[2017-01-27] MEDS ORDERED: PIPERACILLIN SODIUM/TAZOBACTAM 4.5 GM in NS (IVPB) 100 ML IV ONE (15:15)
[2017-01-27] MEDS ORDERED: KETOROLAC 30 MG/ML VIAL IVP ONE (15:15)
[2017-01-27 16:38] VITALS: BP 97/69
[2017-01-27] MEDS ORDERED: ONDANSETRON 4 MG/2 ML (SDV) Z0FRAN IVP PRN ×2 (17:15→20:15)
[2017-01-27] MEDS ORDERED: PIPERACILLIN SODIUM/TAZOBACTAM 4.5 GM in NS (IVPB) 100 ML IV SCH (18:00)
[2017-01-27 19:26] VITALS: BP 97/52
[2017-01-27] MEDS ORDERED: PIPERACILLIN/TAZO 4.5 GM VIAL (ZOSYN) IV ONE (19:55)
[2017-01-27] MEDS ORDERED: NS (IVPB) 100 ML ONE (19:58)
[2017-01-27] MEDS: fentaNYL INJECTION 100 MCG/2 ML AMP IVP PRN (20:32)
[2017-01-27] MEDS: PIPERACILLIN SODIUM/TAZOBACTAM 4.5 GM in NS (IVPB) 100 ML IV SCH (20:33)
[2017-01-27] MEDS: D5 1/2 NS W/KCL 20 MEQ/L 1,000 ML IV SCH (20:34)
[2017-01-27] MEDS: FAMOTIDINE 20MG/2ML IV (PEPCID) IVP SCH (20:51)
[2017-01-28] VITALS: BP 93/61
[2017-01-28] MEDS: D5 1/2 NS W/KCL 20 MEQ/L 1,000 ML IV SCH ×3 (03:41→22:33)
[2017-01-28 04:00] VITALS: BP_SYST 93; BP_SYST 99; BP_DIAS 61; BP_DIAS 65
[2017-01-28] MEDS: PIPERACILLIN SODIUM/TAZOBACTAM 4.5 GM in NS (IVPB) 100 ML IV SCH ×3 (04:19→17:53)
[2017-01-28 08:00] VITALS: BP 103/69
[2017-01-28] MEDS: FAMOTIDINE 20MG/2ML IV (PEPCID) IVP SCH ×2 (08:43→22:04)
[2017-01-28] MEDS: fentaNYL INJECTION 100 MCG/2 ML AMP IVP PRN (09:34)
[2017-01-28 12:00] VITALS: BP 92/59
--- NOTE | 2017-01-28 12:26 | History & Physical-Hospitalist ---
HPI History of Present Illness: HPI/Chief Complaint CC: Worsened acute diverticulitis and failed outpt oral abx HPI: This is a 56-year-old white female of [facility] the presented to the emergency room with worsening abdominal pain after being treated for initial case of acute diverticulitis on CT scan confirmed on 01/18/17. She reports that she's been constipated and having diarrhea and just overall becoming very bloated and uncomfortable. Repeat CT scan ordered by Dr. Hernandez revealed worsening acute diverticulitis and failure of oral antibiotics as an outpatient basis. There was no evidence of any small bowel obstruction is initially assessed. At this current time patient is much better but is unsure about eating because that's when the pain begins. Source: patient Exam Limitations: no limitations Date Seen 01/28/17 Time Seen by Provider: 11:00 Attending Physician Reny Rodriguez DO PCP Mariam Dotson Aprn Referring Physician Date of Admission Jan 27, 2017 at 15:15 Home Medications & Allergies Home Medications Reviewed patient Home Medication Reconciliation Form Allergies Allergies Coded Allergies metronidazole (Verified Allergy, Unknown, 01/27/17) Past Ducicws-Vwdhpf-Fnsaam Hx Patient Social History Marrital Status: Employed/Student: employed ([employer] for 17 years) Alcohol Use: Rarely Uses Number of Drinks Today: 0 Recreational Drug Use: No Smoking Status: Current Everyday Smoker Type Used: Cigarettes 2nd Hand Smoke Exposure: No Physical Abuse Screen: No Sexual Abuse: No Recent Foreign Travel: No Contact w/other who traveled: No Recent Hopitalizations: No Recent Infectious Disease Expo: No Immunizations Up To Date Tetanus Booster (TDap): Unknown Date of Pneumonia Vaccine: May 28, 2011 Seasonal Allergies Seasonal Allergies: No Surgeries Yes (GALL BLADDER REMOVAL) Gallbladder, Hysterectomy, Orthopedic Respiratory No Cardiovascular No Neurological No Reproductive System Hx Reproductive Disorders: No Sexually Transmitted Disease: No Genitourinary Yes Bladder Infection Gastrointestinal Yes Diverticulosis Musculoskeletal No Endocrine History of Endocrine Disorders: No HEENT History of HEENT Disorders: Yes (EARLY SIGNS OF CATARACTS) Loss of Vision: Denies Hearing Impairment: Denies Cancer No Did You Recieve Any Treatments: No Psychosocial History of Psychiatric Problem: No Behavioral Health Disorders: Anxiety Integumentary History of Skin or Integumenta: No Blood Transfusions History of Blood Disorders: No Adverse Reaction to a Blood Tr: No Family Medical History Significant Family History: No Pertinent Family Hx Family Hx: Colon cancer 19 MOTHER Heart valve stenosis 19 FATHER Review of Systems Constitutional: see HPI, chills, dizziness, fever, weakness EENTM: no symptoms reported Respiratory: no symptoms reported Cardiovascular: no symptoms reported Gastrointestinal: abdominal pain (LLQ), constipation, diarrhea, loss of appetite, nausea Genitourinary: decreased output Musculoskeletal: no symptoms reported Skin: no symptoms reported Psychiatric/Neurological: No Symptoms Reported All Other Systems Reviewed Negative Unless Noted: Yes Physical Exam Physical Exam Vital Signs Vital Sign - Last 12Hours 01/27/17 01/27/17 12:02 16:38 Temp 98.0 Pulse 73 Resp 18 B/P (MAP) 120/70 Pulse Ox 99 O2 Delivery Room Air Capillary Refill : Less Than 3 Seconds General Appearance: No Apparent Distress, WD/WN, Chronically ill Eyes: Bilateral Eye Normal Inspection, Bilateral Eye PERRL HEENT: PERRL/EOMI, Normal ENT Inspection, Pharynx Normal Neck: Full Range of Motion, Normal Inspection, Non Tender, Supple, Carotid Bruit Respiratory: Chest Non Tender, Lungs Clear, Normal Breath Sounds, No Accessory Muscle Use, No Respiratory Distress Cardiovascular: Regular Rate, Rhythm, No Edema, No Gallop, No JVD, No Murmur, Normal Peripheral Pulses Gastrointestinal: Normal Bowel Sounds, No Organomegaly, No Pulsatile Mass, Soft , Tenderness (left lower quadrant) Back: Normal Inspection, No CVA Tenderness, No Vertebral Tenderness Extremity: Normal Capillary Refill, Normal Inspection, Normal Range of Motion, Non Tender, No Calf Tenderness, No Pedal Edema Neurologic/Psychiatric: Alert, Oriented x3, No Motor/Sensory Deficits, Normal Mood/Affect Skin: Normal Color, Warm/Dry Lymphatic: No Adenopathy Results Results/Procedures Lab Laboratory Tests 01/27/17 12:15 Assessment/Plan Admission Diagnosis Assessment: Acute and resistant to oral antibiotic treatment as an outpatient diverticulitis Leukocytosis Hypokalemia Current smoker Chronic urinary retention Assessment and Plan Plan: Manage pain IV antibiotics Await general surgery recommendations Ambulate Maintain IV fluids and support Clinical Quality Measures DVT/VTE Risk/Contraindication: Risk Factor Score Per Nursin RFS Level Per Nursing on Admit: 2=Moderate RENY RODRIGUEZ DO Jan 28, 2017 12:26
[2017-01-28] MEDS ORDERED: DIAZ5TAB3 PO (14:23)
[2017-01-28] MEDS ORDERED: HYDR-3816 PO (14:23)
[2017-01-28] MEDS ORDERED: AMOX1TAB12 PO (14:23)
[2017-01-28] MEDS ORDERED: ONDA8TAB13 SL (14:23)
[2017-01-28 16:36] VITALS: BP 114/59
--- NOTE | 2017-01-28 17:23 | Consultation ---
History of Present Illness History of Present Illness Patient Consulted On(baldomero/time) 01/28/17 17:11 Time Seen by Provider: 16:22 History of Present Illness Surgery asked to consult regarding worsening Diverticulitis. HPI: Pt is a 56-year-old white female of [facility] who presented to the emergency room with worsening abdominal pain after being treated for initial case of acute diverticulitis on CT scan confirmed on 01/18/17. She reports that she's been constipated and having diarrhea and just overall becoming very bloated and uncomfortable. Repeat CT scan ordered this visit revealed worsening acute diverticulitis; basically failure of oral antibiotics as an outpatient. Pt complained of sharp, crampy pain that is worse when she is trying to urinate. At its worst rated pain as at least 8 out of 10 on a 1-10 scale. Nothing seemed to make it better. She was taking Augmentin as an outpt. She reports having to force her urine output. She states her bloating has become extreme. She thought she was constipated and took some laxatives. She had a large bowel movement a couple days ago followed by some diarrhea. She had a small amount of diarrhea on Sunday. She denies any hematochezia. Her last solid food was toast at 07:00 on Sunday morning. She has been drinking tea throughout the morning. She denies any fever. Allergies and Home Medications Allergies Coded Allergies: metronidazole (Verified Allergy, Unknown, 01/27/17) Home Medications Amoxicillin/Potassium Clav 1 Each Tablet, 1 TAB PO BID, (Reported) FILLED 01/19/17 #14 FOR A 7 DAY THERAPY Diazepam 5 Mg Tablet, 5 MG PO QID PRN for ANXIETY, (Reported) Hydrocodone/Acetaminophen 1 Each Tablet, 1 TAB PO Q6H PRN for PAIN-MODERATE, ( Reported) Ondansetron 8 Mg Tab.rapdis, 8 MG SL Q6H PRN for NAUSEA/VOMITING-1ST LINE, ( Reported) Phenazopyridine HCl 200 Mg Tablet, 200 MG PO TID PRN for URINE PAIN, (Reported) Past Ntejklt-Skckod-Dgnbga Hx Patient Social History Alcohol Use: Rarely Uses Number of Drinks Today: 0 Recreational Drug Use: No Smoking Status: Current Everyday Smoker Type Used: Cigarettes 2nd Hand Smoke Exposure: No Recent Foreign Travel: No Contact w/Someone Who Travel: No Recent Infectious Disease Expo: No Recent Hopitalizations: No Physical Abuse Screen: No Sexual Abuse: No Immunizations Up To Date Tetanus Booster (TDap): Unknown Date of Pneumonia Vaccine: May 28, 2011 Seasonal Allergies Seasonal Allergies: No Surgeries History of Surgeries: Yes (GALL BLADDER REMOVAL) Surgeries: Gallbladder, Hysterectomy, Orthopedic Respiratory History of Respiratory Disorde: No Cardiovascular History of Cardiac Disorders: No Neurological History of Neurological Disord: No Reproductive System Hx Reproductive Disorders: No Sexually Transmitted Disease: No Genitourinary History of Genitourinary Disor: Yes Genitourinary Disorders: Bladder Infection Gastrointestinal History of Gastrointestinal Di: Yes Gastrointestinal Disorders: Diverticulosis Musculoskeletal History of Musculoskeletal Dis: No Endocrine History of Endocrine Disorders: No HEENT History of HEENT Disorders: Yes (EARLY SIGNS OF CATARACTS) Loss of Vision: Denies Hearing Impairment: Denies Cancer History of Cancer: No Psychosocial History of Psychiatric Problem: No Behavioral Health Disorders: Anxiety Integumentary History of Skin or Integumenta: No Blood Transfusions History of Blood Disorders: No Adverse Reaction to a Blood Tr: No Family Medical History Significant Family History: Heart Disease (Father), Cancer (mother - colon) Family Medial History: Colon cancer 19 MOTHER Heart valve stenosis 19 FATHER Review of Systems-General Constitutional: No chills, No fever, weakness, weight loss EENTM: No blurred vision, No dental problems, No epistaxis, No throat swelling Respiratory: No cough, No dyspnea on exertion, No wheezing Cardiovascular: No chest pain, No edema, No palpitations Gastrointestinal: abdominal pain, constipation, diarrhea, No hematemesis, No melena, nausea, vomiting Genitourinary: decreased output, dysuria, frequency, No hematuria : No Musculoskeletal: joint pain, joint swelling, muscle stiffness Skin: No change in color, No change in hair/nails, No lesions, No pruritus Psychiatric/Neurological: Anxiety, Denies Depressed, Denies Seizure, Denies Weakness Other denies any abnormal bruising or bleeding, denies any heat or cold intolerance Physical Exam-General Problems Physical Exam Vital Signs Vital Sign - Last 12Hours 01/27/17 01/27/17 12:02 16:38 Temp 98.0 Pulse 73 Resp 18 B/P (MAP) 120/70 Pulse Ox 99 O2 Delivery Room Air Capillary Refill : Less Than 3 Seconds General Appearance: WD/WN, mild distress Eyes: Bilateral Eye PERRL, Bilateral Eye EOMI HEENT: pharynx normal, No scleral icterus (R), No scleral icterus (L), No pale conjunctivae (R), No pale conjunctivae (L) Neck: non-tender, full range of motion, supple, normal inspection Respiratory: chest non-tender, lungs clear, normal breath sounds, no respiratory distress, no accessory muscle use Cardiovascular: regular rate, rhythm, no edema, no murmur Gastrointestinal: soft, no organomegaly, no pulsatile mass, No distended, tenderness (across lower abdomen, most suprapubic, then LLQ then RLQ) Rectal: deferred Back: no CVA tenderness, no vertebral tenderness Extremities: normal range of motion, non-tender, normal inspection, no pedal edema, no calf tenderness, normal capillary refill Neurologic/Psychiatric: election watcher II-XII nml as tested, no motor/sensory deficits, alert, normal mood/affect, oriented x 3 Skin: normal color, warm/dry Lymphatic: no adenopathy (neck, axilla or groin) Assessment/Plan Assessment/Plan Assessment/Plan Diverticulitis - failed outpt treatment, worse on repeat CT Pt was admitted on IV ABX, NPO, pain control. She had an elevated WBC. She feels much better today but still has some minor pain. I sat down and talked with her for over 45 min, going over the CT and explaining my reasoning for keeping her in the hospital longer and on clears only. We talked about Diverticulitis; what it actually is , what makes it worse and how to try and avoid it in the future. We also discussed reasons we do surgery, indications for surgery and emergency surgery with need for ostomy. All questions answered to her satisfaction and she understands better now. I want to keep her on clears for 2-3 more days , but if her pain continues to improve, WBC is down and she tolerates clears today and tomorrow; she probably can go home sometime after lunch tomorrow. May need to change her to cipro PO, since Augmentin didn't seem to work (however that may have been due to diet as outpt). Clinical Quality Measures DVT/VTE Risk/Contraindication: Risk Factor Score Per Nursin RFS Level Per Nursing on Admit: 2=Moderate ERENDIRA PEREZ DO Jan 28, 2017 17:23
[2017-01-28 19:34] VITALS: BP 101/67
[2017-01-29] VITALS: BP 93/57
[2017-01-29] MEDS: PIPERACILLIN SODIUM/TAZOBACTAM 4.5 GM in NS (IVPB) 100 ML IV SCH ×2 (03:29→11:08)
[2017-01-29 05:29] LABS: BASOPHILS % (AUTO) 0 % (0-10); EOSINOPHILS # (AUTO) 0.1 10^3/uL (0.0-0.3); EOSINOPHILS % (AUTO) 3 % (0-10); LYMPHOCYTES # (AUTO) 2.7 X 10^3 (1.0-4.0); LYMPHOCYTES % (AUTO) 48 % (12-44); MEAN CORPUSCULAR HEMOGLOBIN 31 PG (25-34); MEAN CORPUSCULAR HGB CONC 33 G/DL (32-36); MEAN CORPUSCULAR VOLUME 91 FL (80-99); MEAN PLATELET VOLUME 9.9 FL (7.4-10.4); MONOCYTES # (AUTO) 0.3 X 10^3 (0.0-1.0); MONOCYTES % (AUTO) 5 % (0-12); NEUTROPHILS # (AUTO) 2.5 X 10^3 (1.8-7.8); NEUTROPHILS % (AUTO) 44 % (42-75); PLATELET COUNT 259 10^3/uL (130-400); RED BLOOD COUNT 4.13 10^6/uL (4.35-5.85); RED CELL DISTRIBUTION WIDTH 12.7 % (10.0-14.5); WHITE BLOOD COUNT 5.6 10^3/uL (4.3-11.0)
[2017-01-29 06:26] LABS: ALANINE AMINOTRANSFERASE 17 U/L (0-55); ALBUMIN 3.4 GM/DL (3.2-4.5); ANION GAP 10 MMOL/L (5-14); ASPARTATE AMINO TRANSFERASE 15 U/L (5-34); BILIRUBIN,TOTAL 0.4 MG/DL (0.1-1.0); BLOOD UREA NITROGEN 10 MG/DL (7-18); BUN/CREATININE RATIO 11; CALCIUM 8.7 MG/DL (8.5-10.1); CARBON DIOXIDE 21 MMOL/L (21-32); CHLORIDE 113 MMOL/L (98-107); CREATININE SERUM 0.89 MG/DL (0.60-1.30); GFR ESTIMATED > 60; GLUCOSE 106 MG/DL (70-105); POTASSIUM 3.8 MMOL/L (3.6-5.0); SODIUM 144 MMOL/L (135-145); TOTAL PROTEIN 5.8 GM/DL (6.4-8.2)
[2017-01-29 07:50] VITALS: BP 106/71
[2017-01-29] MEDS: D5 1/2 NS W/KCL 20 MEQ/L 1,000 ML IV SCH (10:19)
[2017-01-29] MEDS: FAMOTIDINE 20MG/2ML IV (PEPCID) IVP SCH (10:19)
--- NOTE | 2017-01-29 12:22 | Progress Note ---
Subjective Time Seen by Provider: 11:42 Subjective/Events-last exam Pt seen and examined, states pain is much better today. Had diarrhea since 2: 30 am and states her urine is clear now. She is tolerating clear diet without any nausea, vomiting or pain. She also states that is easier to urinate and does not hurt as much as before. Review of Systems General: No Chills, No Night Sweats HEENT: No Head Aches, No Visual Changes Pulmonary: No Dyspnea, No Cough Cardiovascular: No: Chest Pain, Palpitations Gastrointestinal: Abdominal Pain (minimal), No: Nausea, Vomiting Genitourinary: No Hematuria Objective Exam Vital Signs Date Time Temp Pulse Resp B/P (MAP) Pulse Ox O2 Delivery O2 Flow Rate FiO2 01/29/17 09:00 Room Air 01/29/17 07:50 98.4 62 22 106/71 99 Room Air 01/29/17 02:00 102.1 01/29/17 00:00 102.6 01/29/17 00:00 98.6 55 18 93/57 96 Room Air 01/28/17 21:00 Room Air 01/28/17 19:34 96.8 58 19 101/67 97 Room Air 01/28/17 16:36 98.8 54 19 114/59 96 Room Air Capillary Refill : Less Than 3 Seconds General Appearance: No Apparent Distress, WD/WN, Chronically ill HEENT: PERRL/EOMI, Pharynx Normal Neck: Full Range of Motion, Normal Inspection, Non Tender, Supple, Carotid Bruit Respiratory: Chest Non Tender, Lungs Clear, Normal Breath Sounds, No Accessory Muscle Use, No Respiratory Distress Cardiovascular: Regular Rate, Rhythm, No Edema, No Gallop, No JVD, No Murmur, Normal Peripheral Pulses Gastrointestinal: soft, no organomegaly, no pulsatile mass, No distended, tenderness (across lower abdomen, most suprapubic, then LLQ then RLQ) Extremity: Normal Capillary Refill, Normal Inspection, Normal Range of Motion, Non Tender, No Calf Tenderness, No Pedal Edema Neurologic/Psychiatric: Alert, Oriented x3, No Motor/Sensory Deficits, Normal Mood/Affect Skin: Normal Color, Warm/Dry Lymphatic: No Adenopathy Results Lab Laboratory Tests 01/29/17 05:13: White Blood Count 5.6, Red Blood Count 4.13L, Hemoglobin 12.6, Hematocrit 38, Mean Corpuscular Volume 91, Mean Corpuscular Hemoglobin 31, Mean Corpuscular Hemoglobin Concent 33, Red Cell Distribution Width 12.7, Platelet Count 259, Mean Platelet Volume 9.9, Neutrophils (%) (Auto) 44, Lymphocytes (%) (Auto) 48H , Monocytes (%) (Auto) 5, Eosinophils (%) (Auto) 3, Basophils (%) (Auto) 0, Neutrophils # (Auto) 2.5, Lymphocytes # (Auto) 2.7, Monocytes # (Auto) 0.3, Eosinophils # (Auto) 0.1, Basophils # (Auto) 0.0, Sodium Level 144, Potassium Level 3.8, Chloride Level 113H, Carbon Dioxide Level 21, Anion Gap 10, Blood Urea Nitrogen 10, Creatinine 0.89, Estimat Glomerular Filtration Rate > 60, BUN/ Creatinine Ratio 11, Glucose Level 106H, Calcium Level 8.7, Total Bilirubin 0.4 , Aspartate Amino Transf (AST/SGOT) 15, Alanine Aminotransferase (ALT/SGPT) 17, Alkaline Phosphatase 67, Total Protein 5.8L, Albumin 3.4 Assessment/Plan Assessment/Plan Assessment/Plan Diverticulitis - failed outpt treatment, worse on repeat CT Pt has improved on IV ABX and pain control; she is now tolerating diet with normal WBC and pain has improved. I again sat down and talked with her, going over a diet plan and laying out what she should eat for next 6 days (including writing it out) as well as printing out a low residue diet. All questions answered to her satisfaction and she can go home sometime after lunch. May need to change her to cipro PO, since Augmentin didn't seem to work (however that may have been due to diet as outpt). She can follow up with me on February 12 or anytime that week, I also told her she will need a colonoscopy in the future (she wants to wait until May when she has time off again). Clinical Quality Measures DVT/VTE Risk/Contraindication: Risk Factor Score Per Nursin RFS Level Per Nursing on Admit: 2=Moderate ERENDIRA PEREZ DO Jan 29, 2017 12:22
--- NOTE | 2017-01-29 12:44 | Progress Note-Hospitalist ---
Standard Progress Note Progress Notes/Assess & Plan Date Seen 01/29/17 Time Seen by Provider: 12:42 Diagnosis Assessment: Acute and resistant to oral antibiotic treatment as an outpatient diverticulitis Leukocytosis Hypokalemia Current smoker Chronic urinary retention Assess & Plan/Chief Complaint The patient is a 56-year-old white female who was admitted with diverticulitis which had failed outpatient oral therapy. Her temperature at admission was 102.6. Her white count was 12.3 and has fallen to 5.6. Dr. Hernandez has already been here and has cleared her for discharge. Physical exam: She is pleasant and enthusiastic. Lungs are clear to auscultation. CV is regular without murmur. Abdomen is soft palpation bowel sounds are present. Impression: Acute diverticulitis improving. Plan discharge. See discharge sequence for outpatient plans and antibiotics. Labs Laboratory Tests 01/29/17 05:13 Final Diagnosis 1.acute diverticulitis. 2.tobaccoism BELKIS SHAVER MD Jan 29, 2017 12:44
[2017-01-29] MEDS ORDERED: CIPR-225 PO (12:46)
--- NOTE | 2017-01-29 12:48 | Discharge Instructions ---
Discharge Instructions Patient Instructions Goal/Follow Up Appt: Outpatient appointment with Dr. Hernandez the week of 02/12 Patient Instructions: Diet as outlined by Dr. Hernandez. Plenty of liquids Cipro twice daily Resume other medications as marked on the discharge sequence Return to The Hospital For: Decline in performance Activity & Diet Discharge Diet: Low Residue Activity as Tolerated: Yes BELKIS SHAVER MD Jan 29, 2017 12:48
[2017-01-29 14:55] VITALS: BP 106/71
== END 2017-01-29 15:04 | disposition home or self-care (01) | DRG 392 ==
LOC: EDUNIT# 11:46 → ER 11:47 → 4TH 15:15
PROVIDERS: ADMIT Internal Medicine; ATTEND Internal Medicine
DX: K57.32 Diverticulitis of large intestine without perforation or abscess without bleeding (principal); E87.6 Hypokalemia; R33.9 Retention of urine, unspecified; F17.210 Nicotine dependence, cigarettes, uncomplicated
CPT/HCPCS: 36415; 74020; 74177; 80053; 81000; 83690; 85025; 86141; 96361; 96365; 96375; 96376

== ENCOUNTER → 2017-06-06 | Outpatient (CLI) | payer OTHER ==
[~2017-06-06] MED LIST changes: +AMOX1TAB12 PO; +CIPR-225 PO; +DIAZ5TAB3 PO; +HYDR-3816 PO; +ONDA8TAB13 SL; +PHEN-827 PO
== END ==
LOC: PREOP 06:18
PROVIDERS: ATTEND Surgery
DX: Z01.818 Encounter for other preprocedural examination (principal); K57.90 Diverticulosis of intestine, part unspecified, without perforation or abscess without bleeding

== ENCOUNTER 2017-06-11 09:48 | Day surgery (SDC) | payer OTHER ==
[~2017-06-11] VITALS: Ht 162.6 cm; Wt 67.2 kg
--- OUTSIDE RECORDS SUMMARY | 2017-06-11 09:52 | XMS REPORT | Continuity of Care Document ---
Author Author [facility] Address Unknown Phone Unavailable Allergies Active Description Code Type Severity Reaction Onset Reported/Identified Relationship to Patient Clinical Status Yes Flagyl Drug Allergy N/A N/A 03/03/2013 Yes venlafaxine 37.5 mg tablet Drug Allergy N/A N/A 10/21/2013 Medications There is no data. Problems Date Dx Coded Attending Type Code Diagnosis Diagnosed By 12/10/2007 PEGGY BUTTS KATIA K 300.00 ANXIETY 12/10/2007 WOODS DO, [...] DDS 616.10 VAGINITIS AND VULVOVAGINITIS UNSPECIFIED 05/19/2008 KELSEY [...] K 112.3 CANDIDIASIS SKIN AND NAILS 05/19/2008 KATIA WOODS DO K 616.10 VAGINITIS AND VULVOVAGINITIS UNSPECIFIED 05/19/2008 [...] DOA K 616.10 VAGINITIS AND VULVOVAGINITIS UNSPECIFIED 06/10/2008 KATIA WOODS DO K 599.70 HEMATURIA, UNSPECIFIED 06/10/2008 KATIA WOODS DO K 789.00 COLIC INFANTILE 06/10/2008 WOODS DO, KATIA K 599.70 HEMATURIA, UNSPECIFIED 06/10/2008 WOODS DO, KATIA K 789.00 COLIC INFANTILE 06/10/2008 XAVI ORTIZS, COMFORT Perez 599.70 HEMATURIA, UNSPECIFIED 06/10/2008 XAVI ORTIZS, COMFORT Perez 789.00 COLIC INFANTILE 06/10/2008 WOODS [...] KATIA K V04.81 FLU SHOT 02/07/2013 XAVI ORTZIS, COMFORT Perez V04.81 FLU SHOT 02/07/2013 WOODS [...] KATIA K 599.0 URINARY TRACT INFECTION 03/03/2013 XAVI ORTIZS, COMFORT Perez 599.0 URINARY TRACT INFECTION 03/03/2013 WOODS DO, [...] DO 596.89 OTHER SPECIFIED DISORDERS OF BLADDER 09/18/2013 KATIA WOODS DO V06.1 TDAP DX 09/18/2013 ANDRAE EDMONDSON APRN V06.1 TDAP DX 09/18/2013 WOODS DOKATIA V06.1 TDAP DX 09/18/2013 KATIA WOODS DO V06.1 TDAP DX 09/18/2013 WOODS KATIA BUTTS V06.1 TDAP DX 09/18/2013 ANDRAE EDMONDSON APRN V06.1 TDAP DX 09/18/2013 WOODS DOKATIA V06.1 TDAP DX 09/18/2013 WOODS KATIA BUTTS V06.1 TDAP DX 01/29/2014 KATIA WOODS DO 054.10 HERPES SIMPLEX GENITAL 01/29/2014 ANDRAE EDMONDSON APRN 054.10 HERPES SIMPLEX GENITAL 01/29/2014 KATIA WOODS DO 054.10 HERPES SIMPLEX GENITAL 01/29/2014 KATIA WOODS DO 054.10 HERPES SIMPLEX GENITAL 06/03/2014 KATIA WOODS DO 719.41 PAIN- SHOULDER 06/03/2014 KATIA WOODS DO 719.41 PAIN- SHOULDER Procedures Code [place] [address] UA LONG DIP 03/03/2013 18533 UA LONG DIP 03/17/2013 11339 UA LONG DIP 08/08/2013 56140 UA LONG DIP 11/10/2013 Results There is no data. Encounters ACCT No. Visit Date/Time Discharge Status Pt. Type Provider Facility Loc./Unit Complaint [id number] 07/08/2014 15:55:00 07/08/2014 23:59:59 CLS Outpatient KATIA WOODS DO [id number] 06/03/2014 16:10:00 06/03/2014 23:59:59 CLS Outpatient WOODS DO KATIA Plasencia [id number] 03/03/2014 16:26:00 03/03/2014 23:59:59 CLS Outpatient ANDRAE EDMONDSON APRN Sussy [id number] 01/29/2014 15:58:00 01/29/2014 23:59:59 CLS Outpatient WOODS DOKATIA [id number] 12/29/2013 15:58:00 12/29/2013 23:59:59 CLS Outpatient WOODS DOKATIA [id number] 11/10/2013 16:06:00 11/10/2013 23:59:59 CLS Outpatient WOODS DOKATIA [id number] 10/21/2013 15:39:00 10/21/2013 23:59:59 CLS Outpatient ANDRAE EDMONDSON APRN Sussy [id number] 09/18/2013 16:45:00 09/18/2013 23:59:59 CLS Outpatient WOODS DOKATIA [id number] 08/21/2013 08:45:00 08/21/2013 23:59:59 CLS Outpatient WOODS DOKATIA [id number] 08/08/2013 08:16:00 08/08/2013 23:59:59 CLS Outpatient WOODS DOKATIA [id number] 05/29/2013 15:30:00 05/29/2013 23:59:59 CLS Outpatient XAVI DDSCOMFORT [id number] 03/17/2013 16:21:00 03/17/2013 23:59:59 CLS Outpatient WOODS DOKATIA [id number] 03/03/2013 15:12:00 03/03/2013 23:59:59 CLS Outpatient WOODS DOKATIA
[2017-06-11] MEDS ORDERED: LACTATED RINGERS 1,000 ML IV ONE (10:11)
[2017-06-11 10:23] VITALS: BP 108/68
[2017-06-11] MEDS ORDERED: proPOfol 200 MG/20 ML (DIPRIVAN) VIAL IV ONE ×2 (10:39→11:02)
--- NOTE | 2017-06-11 10:42 | Progress Note-Pre Operative ---
Pre-Operative Progress Note H&P Reviewed The H&P was reviewed, patient examined and no changes noted. Time Seen by Provider: 10:30 Date H&P Reviewed: Jun 11, 2017 Time H&P Reviewed: 08:33 Pre-Operative Diagnosis: screening colonoscopy ERENDIRA PEREZ DO Jun 11, 2017 10:42
[2017-06-11] MEDS ORDERED: HURRICAINE EXT TUBE (BENZOCAINE) XX PRN (10:45)
[2017-06-11] MEDS ORDERED: LACTATED RINGERS 1,000 ML IV SCH (11:15)
[2017-06-11 11:20] VITALS: BP 121/81
--- NOTE | 2017-06-11 11:37 | Progress Note-Post Operative ---
Post-Operative Progess Note Surgeon (s)/Production Controller (s) Surgeon ERENDIRA PEREZ DO Production Controller: Jaret Covington MS III Pre-Operative Diagnosis screening colonoscopy Post-Operative Diagnosis Diverticulosis internal hemorrhoids Procedure & Operative Findings Date of Procedure 06/11/17 Procedure Performed/Findings colonoscopy Anesthesia Type IV sedation by LOADER [employer] Estimated Blood Loss Estimated blood loss (mL): none Specimens/Packing Specimens Removed none ERENDIRA PEREZ DO Jun 11, 2017 11:37
--- NOTE | 2017-06-11 11:38 | Endoscopy Discharge Instruct ---
Endo Procedure/Findings Findings 1.: Diverticulosis 2.: Internal Hemorrhoids Discharge Instructions - Activity: You might feel a little sleepy until tomorrow. This is due to the medicine you received to relax you. Until tomorrow, you should: NOT drive a car, operate machinery or power tools. NOT drink any alcoholic beverages. NOT make any important decisions or sign importortant papers. Do not return to work until tomorrow, unless otherwise instructed. Resume previous activities tomorrow. Diet: Start by taking liquids. If you tolerate liquids, advance to solid food. make an appointment for 1 week, Notify Physician - If you experience excessive bleeding, unusual abdominal pain, fever, or chest pain, contact your doctor immediately. Follow-Up: - I have received and understand the above instructions and will call my doctor if I have any further questions. Patient Signature Date Nurse Signature Other (Relationship) ERENDIRA PEREZ DO Jun 11, 2017 11:38
[2017-06-11 11:50] VITALS: BP 119/92
[2017-06-11 12:00] VITALS: BP 119/92
--- NOTE | 2017-06-11 22:41 | OPERATIVE REPORT ---
DATE OF SERVICE: 06/11/2017 PREOPERATIVE DIAGNOSIS: Screening colonoscopy. POSTOPERATIVE DIAGNOSES: 1. Diverticula. 2. Internal hemorrhoids. PROCEDURE: Colonoscopy. SURGEON: Dr. Hernandez. SAFETY SECURITY OFFICER: Jaret Covington, medical student. ANESTHESIA: IV sedation. SPECIMENS: None. BLOOD LOSS: None. FLUIDS: Per anesthesia. POSTOPERATIVE CONDITION: Stable. INDICATION FOR PROCEDURE: The patient is a 57-year-old female who needed a screening colonoscopy. She has a history of diverticulitis. FINDINGS: The patient had some diverticula throughout the colon, mostly in the left side, but did have it all the way throughout and she had some internal hemorrhoids. Otherwise, no obvious pathology. PROCEDURE NOTE: After informed consent was obtained, the patient was brought to the endoscopy suite, placed in the bed in the left lateral decubitus position. She was administered IV sedation by the LAUNDRY SUPERVISOR who then monitored her vitals the entire time, heart rate, blood pressure and pulse ox. Then the scope was inserted, pushed all the way to about 150 cm, able to get to the cecum, took a picture of the appendiceal orifice and then able to get into the terminal ileum, took a picture in the terminal ileum and then slowly withdrew the scope insufflating to look circumferentially at the bai looking at the cecum up the ascending colon to the hepatic flexure, then down the transverse colon into the splenic flexure, into the descending colon and down into the sigmoid and then rectum. A lot of diverticula seen throughout the sigmoid and descending colon. Pictures taken and then into the rectal vault. Retroflexion in the rectal vault, saw some minimal internal hemorrhoids, took pictures and then removed the scope. The patient tolerated the procedure and then recovered in the endoscopy suite. Job ID: [id number] DocumentID: [id number] Dictated Date: 06/11/2017 12:56:53 Replanter Date: 06/11/2017 22:40:31 Dictated By: ERENDIRA HERNANDEZ DO
== END 2017-06-11 12:00 | disposition home or self-care (01) ==
LOC: ENDO 09:48
PROVIDERS: ATTEND Surgery
DX: Z12.11 Encounter for screening for malignant neoplasm of colon (principal); K57.30 Diverticulosis of large intestine without perforation or abscess without bleeding; K64.8 Other hemorrhoids; F17.210 Nicotine dependence, cigarettes, uncomplicated; F41.9 Anxiety disorder, unspecified; K21.9 Gastro-esophageal reflux disease without esophagitis; Z79.899 Other long term (current) drug therapy; Z88.1 Allergy status to other antibiotic agents; Z96.651 Presence of right artificial knee joint; Z80.0 Family history of malignant neoplasm of digestive organs

== ENCOUNTER 2020-09-03 12:05 | Emergency (ER) | payer SELFPAY ==
[~2020-09-03] VITALS: Ht 162 cm; Wt 70.0 kg
[~2020-09-03 12:05] MED LIST changes: -DIAZ5TAB3 PO; +DIAZ5TAB49 PO; +HYDR-34 PO; -HYDR-3816 PO; +HYDR-4226 PO; -HYDR-757 PO
--- NOTE | 2020-09-03 12:24 | ED Abdominal Pain ---
General Stated Complaint: DIFFICULTY URINIATING,ABD SWELLING Source of Information: Patient Exam Limitations: No Limitations History of Present Illness Date Seen by Provider: Sep 03, 2020 Time Seen by Provider: 12:00 Initial Comments To ER with difficulty urinating and dribbling upon urination for few days. She had some nausea about 2 weeks ago but that has resolved. However the urinary symptoms persisted. She has a long history of urinary tract infections. She saw the [facility] clinic and told them of her symptoms and it was believed that represented a urinary tract infection so she was given ciprofloxacin. She states she did not have a urinalysis done or any lab work. She now reports the pain is gone but she has abdominal distention and the urinary dribbling persists. Timing/Duration: 2-3 Days Severity/Quality: Moderate Location: Suprapubic Radiation: No Radiation Activities at Onset: None Associated Symptoms: Denies Symptoms Allergies and Home Medications Allergies Coded Allergies: metronidazole (Verified Allergy, Unknown, 01/27/17) Home Medications Amoxicillin/Potassium Clav 1 Each Tablet, 1 EACH PO BID Prescribed by: MYA ARORA on 09/03/20 1317 Diazepam 5 Mg Tablet, 5 MG PO QID PRN for ANXIETY, (Reported) Hydrocodone Bit/Acetaminophen 1 Each Tablet, 1 TAB PO Q6H PRN for PAIN-MODERATE, (Reported) Hydrocodone/Acetaminophen 1 Each Tablet, 1 TAB PO Q4H PRN for PAIN-MODERATE (5- 7) Prescribed by: MYA ARORA on 09/03/20 1318 Ondansetron 8 Mg Tab.rapdis, 8 MG PO Q6H PRN for NAUSEA/VOMITING-1ST LINE Prescribed by: MYA ARORA on 09/03/20 1317 Patient Home Medication List Home Medication List Reviewed: Yes Review of Systems Review of Systems Constitutional: see HPI EENTM: No Symptoms Reported Respiratory: No Symptoms Reported Cardiovascular: See HPI Gastrointestinal: See HPI, Abdominal Pain Genitourinary: See HPI, Frequency Musculoskeletal: no symptoms reported Skin: no symptoms reported Psychiatric/Neurological: No Symptoms Reported Endocrine: No Symptoms Reported Hematologic/Lymphatic: No Symptoms Reported Past Cxdqoxp-Wmoknw-Qomfqs Hx Patient Social History Type Used: Cigarettes 2nd Hand Smoke Exposure: No Recent Hopitalizations: No Immunizations Up To Date Tetanus Booster (TDap): Unknown Date of Pneumonia Vaccine: May 28, 2011 Seasonal Allergies Seasonal Allergies: No Past Medical History Surgeries: Yes (GALL BLADDER REMOVAL) Gallbladder, Hysterectomy, Orthopedic Respiratory: No Cardiac: No Neurological: No Reproductive Disorders: No Sexually Transmitted Disease: No Genitourinary: Yes Bladder Infection Gastrointestinal: Yes Diverticulosis Musculoskeletal: No Endocrine: No HEENT: Yes (EARLY SIGNS OF CATARACTS) Loss of Vision: Denies Hearing Impairment: Denies Cancer: No Did You Recieve Any Treatments: No Psychosocial: No Anxiety Integumentary: No Blood Disorders: No Adverse Reaction/Blood Tranf: No Family Medical History Colon cancer 19 MOTHER Heart valve stenosis 19 FATHER Heart Disease, Cancer Physical Exam Vital Signs Vital Signs - First Documented 09/03/20 12:10 Temp 37.2 Pulse 85 Resp 16 B/P (MAP) 149/99 (116) Pulse Ox 96 O2 Delivery Room Air Capillary Refill : Height/Weight/BMI Height: 5'4.00" Weight: 148lbs. 2.0oz. 67.229879ot; 25.4 BMI Method:Stated General Appearance: WD/WN, no apparent distress Neck: non-tender, full range of motion Respiratory: normal breath sounds, no respiratory distress, no accessory muscle use Cardiovascular: regular rate, rhythm, no murmur Gastrointestinal: normal bowel sounds, non tender, soft Extremities: normal range of motion, non-tender Neurologic/Psychiatric: alert, normal mood/affect, oriented x 3 Skin: normal color, warm/dry Progress/Results/Core Measures Results/Orders Lab Results Laboratory Tests Test 09/03/20 12:20 09/03/20 12:40 Range/Units White Blood Count 12.2 H 4.3-11.0 10^3/uL Red Blood Count 4.28 3.80-5.11 10^6/uL Hemoglobin 13.6 11.5-16.0 g/dL Hematocrit 40 35-52 % Mean Corpuscular Volume 93 80-99 fL Mean Corpuscular Hemoglobin 32 25-34 pg Mean Corpuscular Hemoglobin Concent 34 32-36 g/dL Red Cell Distribution Width 12.4 10.0-14.5 % Platelet Count 244 130-400 10^3/uL Mean Platelet Volume 9.6 9.0-12.2 fL Immature Granulocyte % (Auto) 0 % Neutrophils (%) (Auto) 74 42-75 % Lymphocytes (%) (Auto) 19 12-44 % Monocytes (%) (Auto) 5 0-12 % Eosinophils (%) (Auto) 1 0-10 % Basophils (%) (Auto) 0 0-10 % Neutrophils # (Auto) 9.1 H 1.8-7.8 10^3/uL Lymphocytes # (Auto) 2.4 1.0-4.0 10^3/uL Monocytes # (Auto) 0.6 0.0-1.0 10^3/uL Eosinophils # (Auto) 0.1 0.0-0.3 10^3/uL Basophils # (Auto) 0.0 0.0-0.1 10^3/uL Immature Granulocyte # (Auto) 0.1 0.0-0.1 10^3/uL Sodium Level 131 L 135-145 MMOL/L Potassium Level 3.7 3.6-5.0 MMOL/L Chloride Level 100 98-107 MMOL/L Carbon Dioxide Level 21 21-32 MMOL/L Anion Gap 10 5-14 MMOL/L Blood Urea Nitrogen 12 7-18 MG/DL Creatinine 1.00 0.60-1.30 MG/DL Estimat Glomerular Filtration Rate 57 BUN/Creatinine Ratio 12 Glucose Level 101 70-105 MG/DL Calcium Level 9.0 8.5-10.1 MG/DL Corrected Calcium 8.9 8.5-10.1 MG/DL Total Bilirubin 0.4 0.1-1.0 MG/DL Aspartate Amino Transf (AST/SGOT) 18 5-34 U/L Alanine Aminotransferase (ALT/SGPT) 23 0-55 U/L Alkaline Phosphatase 69 40-136 U/L Total Protein 6.9 6.4-8.2 GM/DL Albumin 4.1 3.2-4.5 GM/DL Urine Color YELLOW Urine Clarity CLEAR Urine pH 5.5 5-9 Urine Specific [place] 1.010 L 1.016-1.022 Urine Protein NEGATIVE NEGATIVE Urine Glucose (UA) NEGATIVE NEGATIVE Urine Ketones NEGATIVE NEGATIVE Urine Nitrite POSITIVE H NEGATIVE Urine Bilirubin NEGATIVE NEGATIVE Urine Urobilinogen 1.0 < = 1.0 MG/DL Urine Leukocyte Esterase NEGATIVE NEGATIVE Urine RBC (Auto) TRACE-I NEGATIVE Urine RBC RARE /HPF Urine WBC NONE /HPF Urine Squamous Epithelial Cells 0-2 /HPF Urine Crystals NONE /LPF Urine Bacteria NEGATIVE /HPF Urine Casts NONE /LPF Urine Mucus NEGATIVE /LPF Urine Culture Indicated NO My Orders Orders - MYA ARORA SPECIFICATION MANAGER Cbc With Automated Diff (09/03/20 12:17) Comprehensive Metabolic Panel (09/03/20 12:17) Ua Culture If Indicated (09/03/20 12:17) Ed Iv/Invasive Line Start (09/03/20 12:17) Ct Abd/Pelvis Wo(Kidney Stone) (09/03/20 12:17) Ketorolac Injection (Toradol Injection) (09/03/20 12:30) Fentanyl Inj (Sublimaze Injection) (09/03/20 13:30) Ceftriaxone For Iv Use (Rocephin For I (09/03/20 13:30) Medications Given in ED Current Medications Medications Dose Ordered Sig/Erika Route Start Time Stop Time Status Last Admin Dose Admin Ceftriaxone Sodium 1000 mg/ Sterile Water 10 ml @ 200 mls/hr ONCE ONCE IV 09/03/20 13:30 09/03/20 13:32 DC 09/03/20 13:34 200 MLS/HR Fentanyl Citrate 50 mcg ONCE ONCE IVP 09/03/20 13:30 09/03/20 13:31 DC 09/03/20 13:33 50 MCG Vital Signs/I&O 09/03/20 12:10 Temp 37.2 Pulse 85 Resp 16 B/P (MAP) 149/99 (116) Pulse Ox 96 O2 Delivery Room Air Diagnostic Imaging Diagonstic Imaging: CT Comments NAME: NATALIYA WHELAN [facility] REC#: [id number] PT STATUS: REG ER : 1960 PHYSICIAN: MYA ARORA APRN ADMIT DATE: 09/03/20/ER Draft Date of Exam:09/03/20 CT ABD/PELVIS WO(KIDNEY STONE) PROCEDURE: CT urinary tract, rule out kidney stone. TECHNIQUE: Multiple contiguous axial images were obtained through the abdomen and pelvis without the use of intravenous contrast. Auto Exposure Controls were utilized during the CT exam to meet ALARA standards for radiation dose reduction. INDICATION: Abdominal pain. History of diverticulitis. Concern for renal stones. COMPARISON: 01/27/2017. FINDINGS: The heart is unremarkable. The lung bases are clear. The liver, spleen, pancreas, adrenal glands, and kidneys have a normal noncontrast CT appearance. The gallbladder is surgically absent. There is no pathologically enlarged mesenteric or retroperitoneal adenopathy. The bowel loops are nondilated. The appendix is visualized in the right lower quadrant, has a normal appearance. Diverticulosis of the colon is seen with pericolonic inflammatory changes involving the sigmoid colon. No evidence of abscess. There is no free fluid or free air. No acute osseous abnormalities. Ureters and bladder are normal. There is no free air, loculated collection, or adenopathy in the pelvis. IMPRESSION: 1. Uncomplicated acute diverticulitis involving the sigmoid colon. 2. No evidence of renal calculi or hydronephrosis. Dictated on workstation # [id number] Dict: 09/03/20 1324 Trans: 09/03/20 1330 CV [id number] Interpreted by: BROOKLYN GIL DO Electronically signed by: Departure Impression Primary Impression: Sigmoid diverticulitis Disposition: 01 HOME, SELF-CARE Condition: Stable Departure-Patient Inst. Decision time for Depature: 13:16 Referrals: SETH JAMISON MD (PCP) Primary Care Physician BETTY IVY APRN (Family) Primary Care Physician Patient Instructions: Diverticulitis Add. Discharge Instructions: 1. Clear liquids for the next 24 hours. You can have a few saltine crackers with the antibiotics and pain medication. Follow-up with your doctor next week. Return to ER for any fevers chills worsening pain or other concerns. Scripts Hydrocodone/Acetaminophen (Hydrocodone-Acetamin 5-325 mg) 1 Each Tablet 1 TAB PO Q4H PRN for PAIN-MODERATE (5-7), #10 TAB Prov: MYA ARORA APRN 09/03/20 Ondansetron (Ondansetron Odt) 8 Mg Tab.rapdis 8 MG PO Q6H PRN for NAUSEA/VOMITING-1ST LINE, #10 TAB Prov: MYA ARORA APRN 09/03/20 Amoxicillin/Potassium Clav (Augmentin 875-125 Tablet) 1 Each Tablet 1 EACH PO BID, #14 TAB 0 Refills Prov: MYA ARORA APRN 09/03/20 MYA ARORA APRN Sep 03, 2020 12:24
[2020-09-03 12:29] LABS: BASOPHILS % (AUTO) 0 % (0-10); EOSINOPHILS # (AUTO) 0.1 10^3/uL (0.0-0.3); EOSINOPHILS % (AUTO) 1 % (0-10); HEMATOCRIT 40 % (35-52); HEMOGLOBIN 13.6 g/dL (11.5-16.0); LYMPHOCYTES # (AUTO) 2.4 10^3/uL (1.0-4.0); LYMPHOCYTES % (AUTO) 19 % (12-44); MEAN CORPUSCULAR HEMOGLOBIN 32 pg (25-34); MEAN CORPUSCULAR HGB CONC 34 g/dL (32-36); MEAN CORPUSCULAR VOLUME 93 fL (80-99); MEAN PLATELET VOLUME 9.6 fL (9.0-12.2); MONOCYTES # (AUTO) 0.6 10^3/uL (0.0-1.0); MONOCYTES % (AUTO) 5 % (0-12); NEUTROPHILS # (AUTO) 9.1 10^3/uL (1.8-7.8); NEUTROPHILS % (AUTO) 74 % (42-75); PLATELET COUNT 244 10^3/uL (130-400); WHITE BLOOD COUNT 12.2 10^3/uL (4.3-11.0)
[2020-09-03] MEDS ORDERED: KETOROLAC 30 MG/ML VIAL IVP ONE (12:30)
[2020-09-03 12:39] LABS: ALBUMIN 4.1 GM/DL (3.2-4.5); POTASSIUM 3.7 MMOL/L (3.6-5.0)
[2020-09-03 12:42] LABS: TOTAL PROTEIN 6.9 GM/DL (6.4-8.2)
[2020-09-03 12:44] LABS: BILIRUBIN,TOTAL 0.4 MG/DL (0.1-1.0)
[2020-09-03 12:50] LABS: BILIRUBIN,URINE NEGATIVE (NEGATIVE); CLARITY,URINE CLEAR; COLOR,URINE YELLOW; GLUCOSE, URINE (UA) NEGATIVE (NEGATIVE); KETONES,URINE NEGATIVE (NEGATIVE); LEUKOCYTE ESTERASE ,URINE NEGATIVE (NEGATIVE); NITRITE,URINE POSITIVE (NEGATIVE); PH,URINE 5.5 (5-9); PROTEIN,URINE NEGATIVE (NEGATIVE)
[2020-09-03 13:07] LABS: BACTERIA,URINE NEGATIVE /HPF; RBC,URINE RARE /HPF; SQUAMOUS EPITHELIAL CELL,UR 0-2 /HPF
[2020-09-03] MEDS ORDERED: ONDA8TAB13 PO (13:17)
[2020-09-03] MEDS ORDERED: ACHD5005 PO (13:17)
[2020-09-03] MEDS ORDERED: AMOX-358 PO (13:17)
[2020-09-03] MEDS ORDERED: fentaNYL INJ 100 MCG/2 ML AMP IVP ONE (13:30)
[2020-09-03] MEDS ORDERED: cefTRIAXone FOR IV USE 1,000 MG in WATER (STERILE) FOR INJECTION 10 ML IV ONE (13:30)
--- NOTE | 2020-09-03 13:31 | Diagnostic Imaging Report ---
PROCEDURE: CT urinary tract, rule out kidney stone. TECHNIQUE: Multiple contiguous axial images were obtained through the abdomen and pelvis without the use of intravenous contrast. Auto Exposure Controls were utilized during the CT exam to meet ALARA standards for radiation dose reduction. INDICATION: Abdominal pain. History of diverticulitis. Concern for renal stones. COMPARISON: 01/27/2017. FINDINGS: The heart is unremarkable. The lung bases are clear. The liver, spleen, pancreas, adrenal glands, and kidneys have a normal noncontrast CT appearance. The gallbladder is surgically absent. There is no pathologically enlarged mesenteric or retroperitoneal adenopathy. The bowel loops are nondilated. The appendix is visualized in the right lower quadrant, has a normal appearance. Diverticulosis of the colon is seen with pericolonic inflammatory changes involving the sigmoid colon. No evidence of abscess. There is no free fluid or free air. No acute osseous abnormalities. Ureters and bladder are normal. There is no free air, loculated collection, or adenopathy in the pelvis. IMPRESSION: 1. Uncomplicated acute diverticulitis involving the sigmoid colon. 2. No evidence of renal calculi or hydronephrosis. Dictated by: Dictated on workstation # [id number]
[2020-09-03 14:06] VITALS: BP 122/80
== END 2020-09-03 14:06 | disposition home or self-care (01) ==
LOC: EDUNIT# 12:05 → ER 12:08
DX: K57.32 Diverticulitis of large intestine without perforation or abscess without bleeding (principal); I10 Essential (primary) hypertension; F41.9 Anxiety disorder, unspecified; Z88.8 Allergy status to other drugs, medicaments and biological substances; Z80.1 Family history of malignant neoplasm of trachea, bronchus and lung; Z82.49 Family history of ischemic heart disease and other diseases of the circulatory system
CPT/HCPCS: 36415; 74176; 80053; 81000; 85025

== ENCOUNTER 2020-09-29 18:08 | Emergency (ER) | payer SELFPAY ==
[~2020-09-29] VITALS: Ht 162.5 cm; Wt 69.4 kg
[~2020-09-29 18:08] MED LIST changes: +ACHD5005 PO; +ONDA8TAB13 PO
--- NOTE | 2020-09-29 18:20 | ED GI ---
General Stated Complaint: BLOATING / HARD TIME URINATING Source of Information: Patient History of Present Illness Date Seen by Provider: September 29, 2020 Time Seen by Provider: 18:15 Initial Comments PT ARRIVES VIA POV FROM HOME C/O ABDOMINAL BLOATING AND DIFFICULTY URINATING SINCE YESTERDAY NO NAUSEA/VOMITING/DIARRHEA HAD BM THIS AM--STATES SHE "HAS NOT HAD A GOOD BM FOR AWHILE" AND TAKES METAMUCIL FOR IT STATES SHE PASSES A SMALL AMOUNT OF STOOL EVERY TIME SHE STRAINS TO URINATE STATES SHE HAS TO PUSH REALLY HARD TO URINATE--STATES "IT'S BEEN LIKE THAT FOREVER" AND STATES SHE HAS SEEN A UROLOGIST A LONG TIME AGO AND DESCRIBES VO IDING CYSTOURETHROGRAM THE TEST SHE HAD DONE. PT STATES SHE WAS TOLD "EVERYTHING WAS NORMAL" AND HAS NOT SEEN ANY ONE SINCE THEN NO FEVER/SWEATS/CHILLS NO PAIN OR BURNING ON URINATION, OR URGENCY, FREQUENCY PT HAS CONTINUED TO EAT AND DRINK NORMALLY SEEN HERE 09/03/20 FOR EXACT SAME COMPLAINTS, AND WAS DX WITH ACUTE SIGMOID DIVERTICULITIS DID NOT FOLLOW UP WITH ANYONE AFTER THAT VISIT STATES SYMPTOMS WENT AWAY, UNTIL YESTERDAY PT HAD COLONOSCOPY A FEW YEARS AGO BY DR. PEREZ--DIVERTICULAR DISEASE WAS NOTED AT THAT TIME PT ALSO HAS HISTORY OF FREQUENT UTI'S PT HAS NOT TAKEN ANYTHING FOR SYMPTOMS PCP: SEES [facility]ER AT [facility] IN [place] Allergies and Home Medications Allergies Coded Allergies: metronidazole (Verified Allergy, Unknown, 01/27/17) Home Medications Amoxicillin/Potassium Clav 1 Each Tablet, 1 EACH PO BID Prescribed by: MYA ARORA on 09/03/20 1317 Diazepam 5 Mg Tablet, 5 MG PO QID PRN for ANXIETY, (Reported) Hydrocodone Bit/Acetaminophen 1 Each Tablet, 1 TAB PO Q6H PRN for PAIN-MODERATE, (Reported) Hydrocodone/Acetaminophen 1 Each Tablet, 1 TAB PO Q4H PRN for PAIN-MODERATE (5- 7) Prescribed by: MYA ARORA on 09/03/20 1318 Ondansetron 8 Mg Tab.rapdis, 8 MG PO Q6H PRN for NAUSEA/VOMITING-1ST LINE Prescribed by: MYA ARORA on 09/03/20 1317 Tamsulosin HCl 0.4 Mg Cap, 0.4 MG PO DAILY Prescribed by: DALY IZAGUIRRE on 09/29/20 1934 Patient Home Medication List Home Medication List Reviewed: Yes Review of Systems Review of Systems Constitutional: no symptoms reported Respiratory: No Symptoms Reported Cardiovascular: No Symptoms Reported Gastrointestinal: See HPI, Abdomen Distended; Denies Abdominal Pain, Denies Diarrhea, Denies Nausea, Denies Poor Appetite, Denies Poor Fluid Intake, Denies Vomiting Genitourinary: See HPI; Denies Flank Pain Musculoskeletal: no symptoms reported Skin: no symptoms reported Psychiatric/Neurological: No Symptoms Reported Endocrine: No Symptoms Reported Hematologic/Lymphatic: No Symptoms Reported Past Zwprfxv-Ggztpz-Hqrecw Hx Past Med/Social Hx: Reviewed and Corrections made Patient Social History Alcohol Use: Occasionally Uses Drug of Choice: DENIES Smoking Status: Current Everyday Smoker (1 PPD) Type Used: Cigarettes 2nd Hand Smoke Exposure: No Recent Hopitalizations: No Immunizations Up To Date Tetanus Booster (TDap): Unknown Date of Pneumonia Vaccine: May 28, 2011 Seasonal Allergies Seasonal Allergies: No Past Medical History Surgeries: Yes (RIGHT SHOULDER REPLACEMENT; COLONOSCOPY; HYST / BSO 1995) Gallbladder, Hysterectomy, Oophorectomy, Orthopedic Respiratory: No Cardiac: No Neurological: No Reproductive Disorders: No MANAGER PEST History: Hysterectomy, Menopausal Sexually Transmitted Disease: No Genitourinary: Yes Bladder Infection, UTI-Chronic Gastrointestinal: Yes Gastroesophageal Reflux, Diverticulosis, Hemorrhoids Musculoskeletal: Yes (RIGHT SHOULDER REPLACEMENT) Arthritis Endocrine: No HEENT: Yes (EARLY SIGNS OF CATARACTS) Loss of Vision: Denies Hearing Impairment: Denies Cancer: No Did You Recieve Any Treatments: No Psychosocial: Yes Anxiety Integumentary: No Blood Disorders: No Adverse Reaction/Blood Tranf: No Family Medical History Colon cancer 19 MOTHER Heart valve stenosis 19 FATHER Heart Disease, Cancer SOCIAL HISTORY: -ETOH--OCCASIONAL USE -DRUGS--DENIES USE -SMOKES 1 PPD PAST SURGICAL HISTORY: -CHOLECYSTECTOMY [address] CABALLERO -RIGHT SHOULDER REPLACEMENT -HYSTERECTOMY IN , BILATERAL SALPINGO-OOPHORECTOMY 1995 -COLONOSCOPY 05/[address] PEREZ Physical Exam Vital Signs Vital Signs - First Documented 09/29/20 18:14 Temp 36.3 Pulse 68 Resp 20 B/P (MAP) 146/86 (106) Pulse Ox 99 O2 Delivery Room Air Capillary Refill : Height/Weight/BMI Height: 5'4.00" Weight: 148lbs. 2.0oz. [id number]; 26.00 BMI Method:Stated General Appearance: WD/WN, no apparent distress, other (WALKS UPRIGHT AN MOVES WITHOUT DIFFICULTY) Respiratory: normal breath sounds, no respiratory distress, no accessory muscle use Cardiovascular: regular rate, rhythm Gastrointestinal: normal bowel sounds, non tender (STATES SHE JUST HAS PRESSURE AND FULLNESS ALL OVER ABDOMEN, BUT NOT PAINFUL TO PALPATION), soft, no orga nomegaly, no pulsatile mass Extremities: normal inspection Back: no CVA tenderness, no vertebral tenderness Neurologic/Psychiatric: news agent II-XII nml as tested, no motor/sensory deficits, alert, normal mood/affect, oriented x 3 Skin: normal color, warm/dry; No rash Progress/Results/Core Measures Results/Orders Lab Results Laboratory Tests Test 09/29/20 18:25 09/29/20 18:53 Range/Units White Blood Count 9.8 4.3-11.0 10^3/uL Red Blood Count 4.69 3.80-5.11 10^6/uL Hemoglobin 14.8 11.5-16.0 g/dL Hematocrit 43 35-52 % Mean Corpuscular Volume 93 80-99 fL Mean Corpuscular Hemoglobin 32 25-34 pg Mean Corpuscular Hemoglobin Concent 34 32-36 g/dL Red Cell Distribution Width 13.1 10.0-14.5 % Platelet Count 230 130-400 10^3/uL Mean Platelet Volume 9.9 9.0-12.2 fL Immature Granulocyte % (Auto) 0 % Neutrophils (%) (Auto) 52 42-75 % Lymphocytes (%) (Auto) 39 12-44 % Monocytes (%) (Auto) 5 0-12 % Eosinophils (%) (Auto) 3 0-10 % Basophils (%) (Auto) 0 0-10 % Neutrophils # (Auto) 5.1 1.8-7.8 10^3/uL Lymphocytes # (Auto) 3.8 1.0-4.0 10^3/uL Monocytes # (Auto) 0.5 0.0-1.0 10^3/uL Eosinophils # (Auto) 0.3 0.0-0.3 10^3/uL Basophils # (Auto) 0.0 0.0-0.1 10^3/uL Immature Granulocyte # (Auto) 0.0 0.0-0.1 10^3/uL Urine Color YELLOW Urine Clarity CLEAR Urine pH 6.0 5-9 Urine Specific [place] 1.010 L 1.016-1.022 Urine Protein NEGATIVE NEGATIVE Urine Glucose (UA) NEGATIVE NEGATIVE Urine Ketones NEGATIVE NEGATIVE Urine Nitrite NEGATIVE NEGATIVE Urine Bilirubin NEGATIVE NEGATIVE Urine Urobilinogen 0.2 < = 1.0 MG/DL Urine Leukocyte Esterase NEGATIVE NEGATIVE Urine RBC (Auto) TRACE-I NEGATIVE Urine RBC NONE /HPF Urine WBC NONE /HPF Urine Squamous Epithelial Cells 0-2 /HPF Urine Crystals NONE /LPF Urine Bacteria NEGATIVE /HPF Urine Casts NONE /LPF Urine Mucus NEGATIVE /LPF Urine Culture Indicated NO Sodium Level 141 135-145 MMOL/L Potassium Level 3.7 3.6-5.0 MMOL/L Chloride Level 109 H 98-107 MMOL/L Carbon Dioxide Level 21 21-32 MMOL/L Anion Gap 11 5-14 MMOL/L Blood Urea Nitrogen 13 7-18 MG/DL Creatinine 0.92 0.60-1.30 MG/DL Estimat Glomerular Filtration Rate > 60 BUN/Creatinine Ratio 14 Glucose Level 86 70-105 MG/DL Calcium Level 8.8 8.5-10.1 MG/DL Corrected Calcium 8.8 8.5-10.1 MG/DL Total Bilirubin 0.2 0.1-1.0 MG/DL Aspartate Amino Transf (AST/SGOT) 17 5-34 U/L Alanine Aminotransferase (ALT/SGPT) 21 0-55 U/L Alkaline Phosphatase 72 40-136 U/L Total Protein 6.6 6.4-8.2 GM/DL Albumin 4.0 3.2-4.5 GM/DL Amylase Level 62 25-125 U/L Lipase 46 8-78 U/L My Orders Orders - DALY IZAGUIRRE DO Ed Iv/Invasive Line Start (09/29/20 18:17) Amylase (09/29/20 18:17) Cbc With Automated Diff (09/29/20 18:17) Comprehensive Metabolic Panel (09/29/20 18:17) Lipase (09/29/20 18:17) Ua Culture If Indicated (09/29/20 18:17) Ct Abd/Pelv W (Appendicitis) (09/29/20 18:43) Acute Abd Series (09/29/20 18:43) Iohexol Injection (Omnipaque 350 Mg/Ml 1 (09/29/20 19:15) Received Contrast (Hold Metformin- Contr (09/29/20 19:15) Sodium Chloride Flush (Catheter Flush Sy (09/29/20 19:15) Ns (Ivpb) (Sodium Chloride 0.9% Ivpb Bag (09/29/20 19:15) Bladder Scan (09/29/20 19:28) Medications Given in ED Current Medications Medications Dose Ordered Sig/Erika Route Start Time Stop Time Status Last Admin Dose Admin Iohexol 100 ml ONCE ONCE IV 09/29/20 19:15 09/29/20 19:16 DC 09/29/20 19:06 87 ML Sodium Chloride 10 ml NEEDED PRN IV 09/29/20 19:15 09/29/20 19:06 10 ML Sodium Chloride 100 ml ONCE ONCE IV 09/29/20 19:15 09/29/20 19:16 DC 09/29/20 19:06 80 ML Vital Signs/I&O 09/29/20 18:14 Temp 36.3 Pulse 68 Resp 20 B/P (MAP) 146/86 (106) Pulse Ox 99 O2 Delivery Room Air Progress Progress Note : Progress Note VOIDED APPROXIMATELY 20 ML ON ARRIVAL PRE-AND POST- VOID BLADDER SCAN PERFORMED: PRE- 325 ML, POST- 45 ML Diagnostic Imaging Comments CT ABDOMEN/PELVIS--PER RADIOLOGIST REPORT AT 1927 IMPRESSION: Postop changes status post cholecystectomy and hysterectomy. Uncomplicated sigmoid diverticulosis. No acute diverticulitis. Normal-appearing appendix. Stable bilobed cyst in the left lobe of the liver. ABDOMEN XRAYS--PER RADIOLOGIST REPORT AT 1927 IMPRESSION: No sign of free air or bowel obstruction. Prominent stool throughout the colon. The lungs are clear. Reviewed: Reviewed by Me Departure Impression Primary Impression: Constipation Additional Impressions: Urinary retention Diverticulosis Disposition: 01 HOME, SELF-CARE Condition: Stable Departure-Patient Inst. Decision time for Depature: 19:55 Referrals: SETH JAMISON MD (PCP) Primary Care Physician BETTY IVY APRN (Family) Primary Care Physician Patient Instructions: Constipation, Adult (DC), Diverticulosis, Urinary Retention (DC) Add. Discharge Instructions: INCREASE YOUR CLEAR LIQUID INTAKE TAKE MIRALAX DAILY--INITIALLY, YOU MAY TAKE EVERY 2 HOURS TO CLEAR YOUR BOWELS, THEN USE ONCE A DAY FOLLOW UP WITH YAQUELIN RODRIGUEZ IN THE NEXT FEW DAYS FOR FURTHER CARE, RETURN TO ER IF WORSE Scripts Tamsulosin HCl (Flomax) 0.4 Mg Cap 0.4 MG PO DAILY, #10 CAP Prov: DALY IZAGUIRRE DO 09/29/20 DALY IZAGUIRRE DO September 29, 2020 18:20
[2020-09-29 18:33] LABS: BASOPHILS % (AUTO) 0 % (0-10); EOSINOPHILS # (AUTO) 0.3 10^3/uL (0.0-0.3); EOSINOPHILS % (AUTO) 3 % (0-10); HEMATOCRIT 43 % (35-52); HEMOGLOBIN 14.8 g/dL (11.5-16.0); LYMPHOCYTES # (AUTO) 3.8 10^3/uL (1.0-4.0); LYMPHOCYTES % (AUTO) 39 % (12-44); MEAN CORPUSCULAR HEMOGLOBIN 32 pg (25-34); MEAN CORPUSCULAR HGB CONC 34 g/dL (32-36); MEAN CORPUSCULAR VOLUME 93 fL (80-99); MEAN PLATELET VOLUME 9.9 fL (9.0-12.2); MONOCYTES # (AUTO) 0.5 10^3/uL (0.0-1.0); MONOCYTES % (AUTO) 5 % (0-12); NEUTROPHILS # (AUTO) 5.1 10^3/uL (1.8-7.8); NEUTROPHILS % (AUTO) 52 % (42-75); PLATELET COUNT 230 10^3/uL (130-400); WHITE BLOOD COUNT 9.8 10^3/uL (4.3-11.0)
[2020-09-29 18:34] LABS: BILIRUBIN,URINE NEGATIVE (NEGATIVE); CLARITY,URINE CLEAR; COLOR,URINE YELLOW; GLUCOSE, URINE (UA) NEGATIVE (NEGATIVE); KETONES,URINE NEGATIVE (NEGATIVE); LEUKOCYTE ESTERASE ,URINE NEGATIVE (NEGATIVE); NITRITE,URINE NEGATIVE (NEGATIVE); PROTEIN,URINE NEGATIVE (NEGATIVE)
[2020-09-29 18:41] LABS: BACTERIA,URINE NEGATIVE /HPF; SQUAMOUS EPITHELIAL CELL,UR 0-2 /HPF
[2020-09-29 19:07] LABS: CHLORIDE 109 MMOL/L (98-107); POTASSIUM 3.7 MMOL/L (3.6-5.0); SODIUM 141 MMOL/L (135-145)
--- NOTE | 2020-09-29 19:07 | Diagnostic Imaging Report ---
INDICATION: Abdominal pain, bloating and distention. EXAMINATION: Abdominal series was performed with a frontal chest view followed by supine and upright abdominal views. FINDINGS: Frontal chest view shows heart to be normal in size with the lungs clear. There is no pneumothorax or pleural fluid. There is no free intraperitoneal air. There is prominent stool throughout the colon. There is no overt obstruction or ileus. There are postoperative changes in the pelvis with clips in place. IMPRESSION: No sign of free air or bowel obstruction. Prominent stool throughout the colon. The lungs are clear. Dictated by: Dictated on workstation # [id number]
[2020-09-29 19:08] LABS: AMYLASE 62 U/L (25-125); CALCIUM 8.8 MG/DL (8.5-10.1)
[2020-09-29 19:09] LABS: GLUCOSE 86 MG/DL (70-105); TOTAL PROTEIN 6.6 GM/DL (6.4-8.2)
[2020-09-29 19:11] LABS: BILIRUBIN,TOTAL 0.2 MG/DL (0.1-1.0); CARBON DIOXIDE 21 MMOL/L (21-32)
[2020-09-29 19:13] LABS: ALKALINE PHOSPHATASE 72 U/L (40-136); CREATININE SERUM 0.92 MG/DL (0.60-1.30); GFR ESTIMATED > 60
[2020-09-29 19:14] LABS: BUN/CREATININE RATIO 14
[2020-09-29] MEDS ORDERED: IOHEXOL 350 MG/ML 100 ML (OMNIPAQUE 350) VIAL IV ONE (19:15)
[2020-09-29] MEDS ORDERED: HOLD METFORMIN - RECEIVED CONTRAST 20 ML VIAL IV SCH (19:15)
[2020-09-29] MEDS ORDERED: NS 100 ML (IVPB) BAG IV ONE (19:15)
[2020-09-29] MEDS ORDERED: CATHETER FLUSH 10 ML SYR IV PRN (19:15)
[2020-09-29 19:16] LABS: ALANINE AMINOTRANSFERASE 21 U/L (0-55)
[2020-09-29 19:17] LABS: LIPASE 46 U/L (8-78)
--- NOTE | 2020-09-29 19:25 | Diagnostic Imaging Report ---
INDICATION: Lower abdominal pain, bloating and abdominal distention. History of diverticulitis. TECHNIQUE: Multiple contiguous axial images were obtained through the abdomen and pelvis after the administration of intravenous contrast. All CT scans use one or more of the following dose optimizing techniques: automated exposure control, MA and/or KvP adjustment based on patient size and exam type or iterative reconstruction. COMPARISON: Prior study of 09/03/2020. FINDINGS: The visualized portions of the lung bases are clear. There is no pleural fluid collection. There is no free intraperitoneal air. The liver shows no focal lesion, except for a stable cyst in the left lobe with bilobed appearance. The spleen, adrenals and pancreas are unremarkable. The kidneys, bilaterally, are normal. There is no retroperitoneal mass or adenopathy. There is no ascites or abnormal fluid collection. Visualized bowel loops show no overt obstruction. The appendix appears normal. There are uncomplicated sigmoid diverticuli. Patient appears to have had prior hysterectomy. There is no abnormal fluid collection in the pelvis. IMPRESSION: Postop changes status post cholecystectomy and hysterectomy. Uncomplicated sigmoid diverticulosis. No acute diverticulitis. Normal-appearing appendix. Stable bilobed cyst in the left lobe of the liver. Dictated by: Dictated on workstation # [id number]
[2020-09-29] MEDS ORDERED: TMSL.4C PO (19:35)
[2020-09-29] MEDS ORDERED: TAMSULOSIN 0.4 MG (FLOMAX) CAP PO SCH (20:00)
[2020-09-29 20:10] VITALS: BP 147/82
== END 2020-09-29 20:09 | disposition home or self-care (01) ==
LOC: EDUNIT# 18:08 → ER 18:10
DX: K59.00 Constipation, unspecified (principal); R33.9 Retention of urine, unspecified; K57.30 Diverticulosis of large intestine without perforation or abscess without bleeding; F41.9 Anxiety disorder, unspecified; F17.210 Nicotine dependence, cigarettes, uncomplicated; Z88.8 Allergy status to other drugs, medicaments and biological substances; Z79.899 Other long term (current) drug therapy
CPT/HCPCS: 36415; 74022; 74177; 80053; 81000; 82150; 83690; 85025

== ENCOUNTER 2021-11-04 18:09 | Emergency (ER) | payer MEDICARE ==
[~2021-11-04] VITALS: Ht 162 cm; Wt 72.0 kg
[~2021-11-04 18:09] MED LIST changes: +TMSL.4C PO
[2021-11-04 18:15] VITALS: BP 125/81
[2021-11-04] MEDS ORDERED: NS IV 1000 ML 1,000 ML IV STA (18:26)
[2021-11-04] MEDS ORDERED: fentaNYL INJ 100 MCG/2 ML AMP IVP STA (18:26)
[2021-11-04 18:29] LABS: BILIRUBIN,URINE NEGATIVE (NEGATIVE); CLARITY,URINE SL CLOUDY; COLOR,URINE YELLOW; GLUCOSE, URINE (UA) NEGATIVE (NEGATIVE); KETONES,URINE NEGATIVE (NEGATIVE); LEUKOCYTE ESTERASE ,URINE 1+ (NEGATIVE); NITRITE,URINE NEGATIVE (NEGATIVE); PROTEIN,URINE NEGATIVE (NEGATIVE)
--- NOTE | 2021-11-04 18:30 | ED GU-Female ---
General Chief Complaint: - Reproductive Stated Complaint: BLOOD IN URINE/LOWER BACK PAIN Nursing Triage Note: STATES SHE WAS SEEN SUNDAY IN [place] AND DX WITH A UTI AND PUT ON BACTRIM. CONTINEUS TO HAVE PAIN AND HEMATURIA. STATES A CT WAS DONE AND IT WAS NEG FOR A KIDNEY STONE. Source: patient Exam Limitations: no limitations (MABLE POWERS) History of Present Illness Date Seen by Provider: Nov 04, 2021 Time Seen by Provider: 18:27 Initial Comments Patient is a 61-year-old female who presents ED with right-sided flank pain burning with urination and dysuria. States symptoms started on Sunday and was seen at [facility] and diagnosed with UTI. Pain is described as sharp. Appears to be intermittent. Worsening pain this evening.. She states she was diagnosed with UTI was placed on Bactrim on Sunday. She reports some mild discomfort in her suprapubic region of her abdomen. She states she had hematuria on Sunday but that has improved after the Bactrim. She reports continued burning with urination and right flank pain she reports nausea without vomiting or diarrhea. Denies history of kidney stones. She reports taking anti-inflammatories for pain at home. Denies chest pain, shortness of breath, headache, dizziness, visual changes. Patient denies of any rash (MABLE POWERS) Allergies and Home Medications Allergies Coded Allergies: hydrocodone (Verified Allergy, Severe, ITCHING, 11/04/21) metronidazole (Verified Allergy, Unknown, 01/27/17) Patient Home Medication List Home Medication List Reviewed: Yes (MABLE POWERS) Amoxicillin/Potassium Clav (Augmentin 875-125 Tablet) 1 Each Tablet, 1 EACH PO BID Prescribed by: MYA ARORA on 09/03/20 1317 Cephalexin (Cephalexin) 500 Mg Tablet, 500 MG PO TID Prescribed by: WILVER SYED on 11/04/212016 Diazepam (Diazepam) 5 Mg Tablet, 5 MG PO QID PRN for ANXIETY, (Reported) Entered as Reported by: MARISEL PULLIAM on 01/28/17 1423 Hydrocodone Bit/Acetaminophen (Lortab 7.5 Mg Tablet) 1 Each Tablet, 1 TAB PO Q6H PRN for PAIN-MODERATE, (Reported) Entered as Reported by: MARISEL PULLIAM on 01/28/17 1423 Hydrocodone/Acetaminophen (Hydrocodone-Acetamin 5-325 mg) 1 Each Tablet, 1 TAB PO Q4H PRN for PAIN-MODERATE (5-7) Prescribed by: MYA ARORA on 09/03/20 1318 Ketorolac Tromethamine (Ketorolac Tromethamine) 10 Mg Tablet, 10 MG PO TID PRN for PAIN-MODERATE (5-7) Prescribed by: WILVER SYED on 11/04/212029 Ondansetron (Ondansetron Odt) 8 Mg Tab.rapdis, 8 MG PO Q6H PRN for NAUSEA/VOMITING-1ST LINE Prescribed by: MYA ARORA on 09/03/20 1317 Tamsulosin HCl (Flomax) 0.4 Mg Cap, 0.4 MG PO DAILY Prescribed by: DALY IZAGUIRRE on 09/29/20 193 Review of Systems Review of Systems Constitutional: No chills, No diaphoresis, No malaise, No weakness EENTM: No double vision Respiratory: No cough, No dyspnea on exertion Cardiovascular: No chest pain Gastrointestinal: abdominal pain; No diarrhea; nausea; No vomiting Genitourinary: burning, flank pain, hematuria Musculoskeletal: No back pain, No joint pain Skin: No change in color, No change in hair/nails (MABLE POWERS) Past Bzwlvwp-Rynhyl-Iaxaak Hx Patient Social History Smokeless Tobacco Frequency: Former User Substance use?: No Alcohol Use?: No (MABLE POWERS) Immunizations Up To Date Tetanus Booster (TDap): Unknown Second COVID19 Vaccination Colt: UNKNOWN DATE COVID19 Vaccine Craft Artist: ANNMARIE (MABLE POWERS) Seasonal Allergies Seasonal Allergies: No (MABLE POWERS) Past Medical History Surgeries: Yes (RIGHT SHOULDER REPLACEMENT; COLONOSCOPY; HYST / BSO 1995) Gallbladder, Hysterectomy, Oophorectomy, Orthopedic Respiratory: No Cardiac: No Neurological: No Reproductive Disorders: No SUPERINTENDENT NONSELLING History: Hysterectomy, Menopausal Sexually Transmitted Disease: No Genitourinary: Yes Bladder Infection, UTI-Chronic Gastrointestinal: Yes Gastroesophageal Reflux, Diverticulosis, Hemorrhoids Musculoskeletal: Yes (RIGHT SHOULDER REPLACEMENT) Arthritis Endocrine: No HEENT: Yes (EARLY SIGNS OF CATARACTS) Loss of Vision: Denies Hearing Impairment: Denies Cancer: No Did You Recieve Any Treatments: No Psychosocial: Yes Anxiety Integumentary: No Blood Disorders: No Adverse Reaction/Blood Tranf: No (MABLE POWERS) Family Medical History Colon cancer 19 MOTHER Heart valve stenosis 19 FATHER Heart Disease, Cancer SOCIAL HISTORY: -ETOH--OCCASIONAL USE -DRUGS--DENIES USE -SMOKES 1 PPD PAST SURGICAL HISTORY: -CHOLECYSTECTOMY [address] CABALLERO -RIGHT SHOULDER REPLACEMENT -HYSTERECTOMY IN , BILATERAL SAL[place]-OOPHORECTOMY 1995 -COLONOSCOPY 05/[address] PEREZ (MABLE POWERS) Physical Exam Vital Signs Vital Signs - First Documented 11/04/21 18:15 Temp 36.9 Pulse 90 Resp 16 B/P (MAP) 125/81 (96) Pulse Ox 97 O2 Delivery Room Air (QUE SMITH MD) Vital Signs Capillary Refill : Less Than 3 Seconds (MABLE POWERS) Height, Weight, BMI Height: 5'4.00" Weight: 148lbs. 2.0oz. 67.863329wj; 27.00 BMI Method:Stated General Appearance: WD/WN, mild distress HEENT: PERRL/EOMI, normal ENT inspection, TMs normal, pharynx normal Neck: non-tender, full range of motion, supple, normal inspection Cardiovascular: regular rate, rhythm, no edema, no gallop, no JVD Respiratory: chest non-tender, lungs clear, normal breath sounds, no respiratory distress, no accessory muscle use Gastrointestinal: normal bowel sounds, soft, no organomegaly, no pulsatile mass, other (Mild tenderness to right sided lateral abdomen) Back: CVA tenderness (R) Extremities: normal range of motion, non-tender, normal inspection, no pedal edema Neurologic/Psychiatric: 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, no motor/sensory deficits, alert, normal mood/affect, oriented x 3 Skin: normal color, warm/dry (MABLE POWERS) Progress/Results/Core Measures Suspected Sepsis SIRS Temperature: Pulse: 90 Respiratory Rate: 16 Laboratory Tests 11/04/21 18:28: White Blood Count 13.5H Blood Pressure 125 /81 Mean: 96 Laboratory Tests 11/04/21 18:28: Creatinine 1.07, Platelet Count 217, Total Bilirubin 0.3 (MABLE POWERS) Results/Orders Lab Results Laboratory Tests Test 11/04/21 18:15 11/04/21 18:28 Range/Units Urine Color YELLOW Urine Clarity SL CLOUDY Urine pH 6.0 5-9 Urine Specific [place] <=1.005 1.016-1.022 Urine Protein NEGATIVE NEGATIVE Urine Glucose (UA) NEGATIVE NEGATIVE Urine Ketones NEGATIVE NEGATIVE Urine Nitrite NEGATIVE NEGATIVE Urine Bilirubin NEGATIVE NEGATIVE Urine Urobilinogen 0.2 < = 1.0 MG/DL Urine Leukocyte Esterase 1+ H NEGATIVE Urine RBC (Auto) 2+ H NEGATIVE Urine RBC 5-10 H /HPF Urine WBC 5-10 H /HPF Urine Squamous Epithelial Cells 0-2 /HPF Urine Crystals NONE /LPF Urine Bacteria TRACE /HPF Urine Casts NONE /LPF Urine Mucus NEGATIVE /LPF Urine Culture Indicated YES White Blood Count 13.5 H 4.3-11.0 10^3/uL Red Blood Count 4.44 3.80-5.11 10^6/uL Hemoglobin 14.3 11.5-16.0 g/dL Hematocrit 41 35-52 % Mean Corpuscular Volume 91 80-99 fL Mean Corpuscular Hemoglobin 32 25-34 pg Mean Corpuscular Hemoglobin Concent 35 32-36 g/dL Red Cell Distribution Width 12.8 10.0-14.5 % Platelet Count 217 130-400 10^3/uL Mean Platelet Volume 9.5 9.0-12.2 fL Immature Granulocyte % (Auto) 0 % Neutrophils (%) (Auto) 74 42-75 % Lymphocytes (%) (Auto) 20 12-44 % Monocytes (%) (Auto) 5 0-12 % Eosinophils (%) (Auto) 1 0-10 % Basophils (%) (Auto) 0 0-10 % Neutrophils # (Auto) 10.0 H 1.8-7.8 10^3/uL Lymphocytes # (Auto) 2.7 1.0-4.0 10^3/uL Monocytes # (Auto) 0.6 0.0-1.0 10^3/uL Eosinophils # (Auto) 0.1 0.0-0.3 10^3/uL Basophils # (Auto) 0.0 0.0-0.1 10^3/uL Immature Granulocyte # (Auto) 0.0 0.0-0.1 10^3/uL Sodium Level 137 135-145 MMOL/L Potassium Level 3.5 L 3.6-5.0 MMOL/L Chloride Level 104 98-107 MMOL/L Carbon Dioxide Level 18 L 21-32 MMOL/L Anion Gap 15 H 5-14 MMOL/L Blood Urea Nitrogen 15 7-18 MG/DL Creatinine 1.07 0.60-1.30 MG/DL Estimat Glomerular Filtration Rate 59 BUN/Creatinine Ratio 14 Glucose Level 95 70-105 MG/DL Calcium Level 9.4 8.5-10.1 MG/DL Corrected Calcium 9.1 8.5-10.1 MG/DL Total Bilirubin 0.3 0.1-1.0 MG/DL Aspartate Amino Transf (AST/SGOT) 18 5-34 U/L Alanine Aminotransferase (ALT/SGPT) 24 0-55 U/L Alkaline Phosphatase 65 40-136 U/L Total Protein 7.2 6.4-8.2 GM/DL Albumin 4.4 3.2-4.5 GM/DL Lipase 48 8-78 U/L (QUE SMITH MD) Vital Signs/I&O 11/05/21 00:00 Intake Total 1000 ml Balance 1000 ml (QUE SMITH MD) Vital Signs/I&O Capillary Refill : Less Than 3 Seconds (MABLE POWERS) Blood Pressure Mean: 96 Departure Communication (PCP) Patient reports suprapubic discomfort and right flank pain. No known history of kidney stones. Patient vital signs stable. Urinalysis concerning for UTI. Blood noted in the urine. Slight elevated white blood count at 13.5. Normal kidney function, liver function pancreatic function. Patient was given fentanyl initially with some improvement requesting more pain medication. IV Toradol with resolution of pain. Patient was pain-free here. No vomiting. No acute distress. Urinalysis concerning for UTI and was given Rocephin here. She states she was on Cipro about 3 weeks ago and was placed on Bactrim this past week for uti. History of uti. Concerning that this may be resistant with the continued urinary symptoms. Due to the recent Cipro and change in Bactrim CT scan was ordered which showed fat stranding around the right ureter concerning for ascending infection versus recently passed stone. Patient appears stable. Possible liver cyst. Outpatient follow-up for further evaluation. Patient scheduled follow-up with urology next Sunday. If any worsening symptoms return back to ED for further evaluation. (MABLE POWERS) Impression Primary Impression: UTI (urinary tract infection) Disposition: 01 HOME, SELF-CARE Condition: Stable Departure-Patient Inst. Decision time for Depature: 20:17 (MABLE POWERS) Referrals: SETH JAMISON MD (PCP) Primary Care Physician BETTY IVY APRN (Family) Primary Care Physician SHI OG MD Patient Instructions: Urinary Tract Infection, Adult (DC) Scripts Ketorolac Tromethamine (Ketorolac Tromethamine) 10 Mg Tablet 10 MG PO TID PRN for PAIN-MODERATE (5-7), #10 TAB Prov: MABLE POWERS 11/04/21 Cephalexin (Cephalexin) 500 Mg Tablet 500 MG PO TID for 10 Days, #30 TAB Prov: MABLE POWERS 11/04/21 ATTENDING PHYSICIAN NOTE: I was physically present as attending physician in the emergency department during the care of this patient, but I was not directly involved in the decision making or delivery of care for this patient. (QUE SMITH MD) MABLE POWERS Nov 04, 2021 18:30 QUE SMITH MD Nov 05, 2021 08:24
[2021-11-04 18:37] LABS: BASOPHILS % (AUTO) 0 % (0-10); EOSINOPHILS # (AUTO) 0.1 10^3/uL (0.0-0.3); EOSINOPHILS % (AUTO) 1 % (0-10); HEMATOCRIT 41 % (35-52); HEMOGLOBIN 14.3 g/dL (11.5-16.0); LYMPHOCYTES # (AUTO) 2.7 10^3/uL (1.0-4.0); LYMPHOCYTES % (AUTO) 20 % (12-44); MEAN CORPUSCULAR HEMOGLOBIN 32 pg (25-34); MEAN CORPUSCULAR HGB CONC 35 g/dL (32-36); MEAN CORPUSCULAR VOLUME 91 fL (80-99); MEAN PLATELET VOLUME 9.5 fL (9.0-12.2); MONOCYTES # (AUTO) 0.6 10^3/uL (0.0-1.0); MONOCYTES % (AUTO) 5 % (0-12); NEUTROPHILS % (AUTO) 74 % (42-75); PLATELET COUNT 217 10^3/uL (130-400); WHITE BLOOD COUNT 13.5 10^3/uL (4.3-11.0)
[2021-11-04 18:41] LABS: BACTERIA,URINE TRACE /HPF; SQUAMOUS EPITHELIAL CELL,UR 0-2 /HPF
[2021-11-04 19:04] LABS: ALBUMIN 4.4 GM/DL (3.2-4.5); POTASSIUM 3.5 MMOL/L (3.6-5.0)
[2021-11-04 19:05] LABS: CALCIUM 9.4 MG/DL (8.5-10.1)
[2021-11-04 19:07] LABS: TOTAL PROTEIN 7.2 GM/DL (6.4-8.2)
[2021-11-04 19:09] LABS: BILIRUBIN,TOTAL 0.3 MG/DL (0.1-1.0)
[2021-11-04 19:11] LABS: CREATININE SERUM 1.07 MG/DL (0.60-1.30)
[2021-11-04] MEDS ORDERED: KETOROLAC 30 MG/ML VIAL IVP ONE (19:30)
[2021-11-04] MEDS ORDERED: KETOROLAC 30 MG/ML VIAL ONE (19:35)
--- NOTE | 2021-11-04 19:43 | Diagnostic Imaging Report ---
PROCEDURE: CT urinary tract, rule out kidney stone. TECHNIQUE: Multiple contiguous axial images were obtained through the abdomen and pelvis without the use of intravenous contrast. Auto Exposure Controls were utilized during the CT exam to meet ALARA standards for radiation dose reduction. INDICATION: Urinary tract infection. Right flank pain, hematuria. COMPARISON: 09/29/2020. FINDINGS: The lung bases are clear. The heart is normal in size. The liver demonstrates no new lesion. There are cysts in the left lobe which appear stable since the prior study, about 2.5 cm in diameter. Cholecystectomy clips are noted. The spleen appears normal. The pancreas is normal. The left adrenal gland has a nodule 1 cm in size measuring 3 Hounsfield units consistent with an adenoma. There does appear to be mild right hydronephrosis and hydroureter. There is moderate periureteral fat stranding. No definite calculi are identified along the course of the ureter. The left kidney demonstrates no hydronephrosis or obstructing stones. No stones are seen in the urinary bladder. The appendix is normal. The bowel loops are nondistended without obstruction. No free fluid or free air is seen. There are numerous phleboliths in the pelvis. There is diverticulosis of the sigmoid colon without diverticulitis. No acute osseous abnormality is seen. There are degenerative changes in the lumbar spine. IMPRESSION: Fat stranding about the right ureter, may be due to ascending infection or recently passed stone. No calculus is seen at this time. Dictated by: Dictated on workstation # [id number]
[2021-11-04] MEDS ORDERED: cefTRIAXone 1 GM PRE-MIX 50 ML IV STA (20:00)
[2021-11-04] MEDS ORDERED: CEPH500T PO (20:17)
[2021-11-04] MEDS ORDERED: KETO10TA PO (20:30)
== END 2021-11-04 20:38 | disposition home or self-care (01) ==
LOC: EDUNIT# 18:09 → ER 18:11
DX: N39.0 Urinary tract infection, site not specified (principal); Z87.19 Personal history of other diseases of the digestive system; Z90.710 Acquired absence of both cervix and uterus; Z90.722 Acquired absence of ovaries, bilateral; Z87.891 Personal history of nicotine dependence
CPT/HCPCS: 36415; 74176; 80053; 81000; 83690; 85025; 87077; 87088; 87186

== ENCOUNTER 2022-03-22 05:41 | Outpatient (CLI) | payer MEDICARE ==
[~2022-03-22] VITALS: Ht 162.6 cm; Wt 72.7 kg
[~2022-03-22 05:41] MED LIST changes: +CEPH500T PO; +KETO10TA PO
[2022-03-22] MEDS ORDERED: PLEC3TAB2 PO (09:25)
[2022-03-22] MEDS ORDERED: VALA500T4 PO (09:25)
[2022-03-22] MEDS ORDERED: ALPR0.254 PO (09:25)
[2022-03-22] MEDS ORDERED: NITR100C PO (09:25)
[2022-03-22] MEDS ORDERED: ESTR1TAB27 PO (09:25)
[2022-03-22] MEDS ORDERED: OMEP20CA18 PO (09:25)
== END 2022-03-22 10:33 | disposition home or self-care (01) ==
LOC: PREOP 05:41
PROVIDERS: ATTEND Surgery
DX: Z01.818 Encounter for other preprocedural examination (principal)

== ENCOUNTER 2022-03-27 08:23 | Day surgery (SDC) | payer MEDICARE ==
[~2022-03-27] VITALS: Ht 162.6 cm; Wt 72.7 kg
[~2022-03-27 08:23] MED LIST changes: +ALPR0.254 PO; +ESTR1TAB27 PO; +NITR100C PO; +OMEP20CA18 PO; +PLEC3TAB2 PO; +VALA500T4 PO
[2022-03-27] MEDS ORDERED: LACTATED RINGERS 1,000 ML IV STA (08:45)
[2022-03-27] MEDS ORDERED: HURRICAINE EXT TUBE (BENZOCAINE) XX PRN (08:45)
[2022-03-27 08:52] VITALS: BP 117/72
[2022-03-27] MEDS ORDERED: PROPOFOL INJECTION 50 ML IV ONE (09:40)
[2022-03-27] MEDS ORDERED: MIDAZOLAM 2 MG/2 ML (VERSED) VIAL ONE (09:40)
--- NOTE | 2022-03-27 09:50 | Progress Note-Pre Operative ---
Pre-Operative Progress Note Date of Available H&P: Mar 16, 2022 Date H&P Reviewed: Mar 27, 2022 Time H&P Reviewed: 09:48 History & Physical: H&P Reviewed, Patient Examed, No changes noted Pre-Operative Diagnosis: Chronic Gastritis, Change in bowel habits, family hx of colon CA ERENDIRA PEREZ DO Mar 27, 2022 09:50
[2022-03-27 10:20] VITALS: BP 77/47
--- NOTE | 2022-03-27 10:24 | Progress Note-Post Operative ---
Post-Operative Progess Note Surgeon (s)/Classroom Assistant (s) Surgeon ERENDIRA PEREZ DO Classroom Assistant: none Pre-Operative Diagnosis Chronic Gastritis, Change in bowel habits, family hx of colon CA Post-Operative Diagnosis Gastritis Hiatal hernia Gastric polyp colon polyp diverticula int hemorrhoids Procedure & Operative Findings Date of Procedure 03/27/22 Procedure Performed/Findings EGD with bx EGD with hot bx removal of polyp Colonoscopy with hot biopsy PROCEDURE NOTE: After informed consent was obtained, the patient was brought to the endoscopy suite, placed in bed in left lateral decubitus position. She was administered IV sedation by the LAB ANIMAL TECHNOLOGIST who then monitored vitals the entire time, heart rate, blood pressure and pulse ox and the scope was inserted down the mouth through the esophagus into the stomach. On the way down, noted some mild esophagitis, took a picture, pushed into the stomach and noted some moderate to severe Gastritis; but not bleeding. Pushed past the antrum, into the duodenum and it looked good. Pulled back and did a biopsy of the antrum, then retroflexed the scope and saw a 1-2 cm hiatal hernia. I took a picture of this and then noted a Gastric polyp. I elected to remove this polyp with hot biopsy, able to get it in two bites. Next, pulled the scope into the GE junction, took another picture of the hiatal hernia and then did a biopsy of the GE junction. Pushed the scope back into the stomach, suctioned all the air out of the stomach. At this point pulled the scope up the esophagus and out the mouth. Switched camera, switched gloves, went down below and started the colonoscopy. As I pushed towards the cecum I noted large diverticula and some retained stool balls (probably from the diverticula) and took a picture. Pushed to about 110 cm to get all the way to cecum, took a picture of the appendiceal orifice and noted the ileocecal valve. In the cecum I saw a small flat polyp and elected to do a hot biopsy of it. Then slowly withdrew the scope, insufflating to look circumferentially at the bai starting in the cecum, up the ascending colon to the hepatic flexure, then down the transverse colon to the splenic flexure, into the descending colon and down into the sigmoid. In the Sigmoid I found two more flat polyps; which I also did a hot biopsy on. Finally into the rectum, retroflexed in the rectal vault, saw some minimal internal hemorrhoids and took a picture of them. The patient tolerated the procedure and she recovered in the endoscopy suite. Recommended for repeat colonoscopy in 5 years Anesthesia Type IV sedation by LAB ANIMAL TECHNOLOGIST Estimated Blood Loss Estimated blood loss (mL): scant Specimens/Packing Specimens Removed antral bx body of stomach bx GE jxn bx Gastric polyp cecal polyp bx sigmoid polyp x 2 ERENDIRA PEREZ DO Mar 27, 2022 10:24
[2022-03-27 10:25] VITALS: BP 81/50
--- NOTE | 2022-03-27 10:26 | Endoscopy Discharge Instruct ---
Endo Procedure/Findings Findings 1.: Hiatal Hernia, Gastritis, Other Findings (Gastric polyp) 2.: Polyp 3.: Diverticulosis 4.: Internal Hemorrhoids Discharge Instructions - Activity: You might feel a little sleepy until tomorrow. This is due to the medicine you received to relax you. Until tomorrow, you should: NOT drive a car, operate machinery or power tools. NOT drink any alcoholic beverages. NOT make any important decisions or sign importortant papers. Do not return to work until tomorrow, unless otherwise instructed. Resume previous activities tomorrow. Diet: Start by taking liquids. If you tolerate liquids, advance to solid food. 1.: EGD in 3 years 2.: Colonscopy in 5 years Notify Physician - If you experience excessive bleeding, unusual abdominal pain, fever, or chest pain, contact your doctor immediately. ERENDIRA PEREZ DO Mar 27, 2022 10:26
[2022-03-27 10:30] VITALS: BP 89/50
[2022-03-27 10:50] VITALS: BP 108/91
--- NOTE | 2022-03-27 10:53 | Anesthesia-General Post-Op ---
MAC Patient Condition Mental Status/LOC: Same as Preop Cardiovascular: Satisfactory Nausea/Vomiting: Absent Respiratory: Satisfactory Pain: Controlled Complications: Absent Post Op Complications Complications None Follow Up Care/Instructions Patient Instructions None needed. Anesthesiology Discharge Order Discharge Order Patient is doing well, no complaints, stable vital signs, no apparent adverse anesthesia problems. No complications reported per nursing. EVARISTO MURRAY CRNA Mar 27, 2022 10:53
[2022-03-27 11:02] VITALS: BP 108/91
== END 2022-03-27 11:02 | disposition home or self-care (01) ==
LOC: ENDO 08:23
PROVIDERS: ATTEND Surgery
DX: K63.5 Polyp of colon (principal); K57.30 Diverticulosis of large intestine without perforation or abscess without bleeding; K64.8 Other hemorrhoids; K29.50 Unspecified chronic gastritis without bleeding; K44.9 Diaphragmatic hernia without obstruction or gangrene; K31.7 Polyp of stomach and duodenum; K31.89 Other diseases of stomach and duodenum; K21.00 Gastro-esophageal reflux disease with esophagitis, without bleeding; Z80.0 Family history of malignant neoplasm of digestive organs; Z87.891 Personal history of nicotine dependence
CPT/HCPCS: 88305

== ENCOUNTER → 2022-05-23 | Outpatient (CLI) | payer MEDICARE ==
--- NOTE | 2022-05-23 12:54 | Diagnostic Imaging Report ---
INDICATION: Postmenopausal screening COMPARISON: None FINDINGS: AP Spine L1-L4: [BMD (g/cm2): 0.974] [T-Score: -1.9] [Z-Score: -0.9] [BMD Previous: na] [BMD % Change: na] LT Hip Neck: [BMD (g/cm2): 0.908] [T-Score: -0.9] [Z-Score: 0.2] LT Hip Total: [BMD (g/cm2):0.948] [T-Score:-0.5] [Z-Score: 0.3] [BMD Previous: na] [BMD % Change: na] RT Hip Neck: [BMD (g/cm2):0.915] [T-Score:-0.9] [Z-Score:0.2] RT Hip Total: [BMD (g/cm2):0.942] [T-score:-0.5] [Z-Score:0.3] [BMD Previous:na] [BMD % Change:na] *Indicates significant change from prior examination based on 95% confidence level. World Health Organization criteria for BMD interpretation classify patients as Normal (T-score at or above -1.0), Osteopenic (T-score between -1.0 and -2.5) or Osteoporotic (T-score at or below -2.5). LIMITATIONS AND MODIFICATION: None. FRACTURE RISK (FRAX SCORE): The ten year probability of (%): Major Osteoporotic Fracture: [7.3] Hip Fracture: [0.7] IMPRESSION: 1. Osteopenia (Low bone mass). 2. See below National Osteoporosis Foundation guidelines on when to potentially initiate pharmacologic therapy. Based on the National Osteoporosis Foundation Guidelines, pharmacologic treatment should be initiated in any of the following, unless clinical conditions suggest otherwise: * Any patient with prior fragility fracture of the hip or vertebrae. A spine fracture indicates 5X risk for subsequent spine fracture and 2X risk for subsequent hip fracture. * Osteoporosis (T-score <-2.5). * Postmenopausal women and men age 50 and older with low bone mass/osteopenia (T-score between -1.0 and -2.5) by DXA and 10-year major osteoporotic fracture greater than 20% or a 10-year probability of hip fracture greater than 3%. These fracture risks are supplied above in the FRAX score, if applicable. * Clinician judgement and/or patient preferences may indicate treatment for people with 10-year fracture probabilities above or below these levels. Dictated by: Dictated on workstation # [id number]
--- NOTE | 2022-05-24 16:53 | Diagnostic Imaging Report ---
INDICATION: Routine screening. COMPARISON: 10/04/2017. TECHNIQUE: 2D and 3D bilateral screening mammography was performed with CAD. FINDINGS: Scattered fibroglandular densities are identified bilaterally. There is a nodular density in the retroareolar slightly medial left breast on the CC view. No definite correlate on the MLO view is seen. The right breast is unremarkable. There are scattered benign calcifications. No malignant-appearing microcalcifications are identified. The axillae are unremarkable. IMPRESSION: Left breast density. Additional views are recommended for further evaluation. ACR BI-RADS Category 0: Incomplete. (Needs additional imaging evaluation). Result letter will be mailed to the patient. Note: At least 10% of breast cancer is not imaged by mammography. Dictated by: Dictated on workstation # [id number]
== END ==
LOC: RAD 11:00
PROVIDERS: ATTEND Nurse Practitioner Family
DX: Z13.820 Encounter for screening for osteoporosis (principal); Z12.31 Encounter for screening mammogram for malignant neoplasm of breast; M85.80 Other specified disorders of bone density and structure, unspecified site; Z78.0 Asymptomatic menopausal state
CPT/HCPCS: 77063; 77067; 77080

== ENCOUNTER → 2022-06-14 | Outpatient (CLI) | payer MEDICARE ==
--- NOTE | 2022-06-14 13:32 | Diagnostic Imaging Report ---
Indication: Left breast density. Patient presents for additional views. Correlation is made with screening study from 05/23/2022. Unilateral left 2-D and 3-D diagnostic mammography was performed. This includes spot compression CC, rolled CC as well as conventional 90 degrees lateral views. Additional views show a slightly persistent density in the medial retroareolar left breast, indeterminate. No suspicious calcifications are seen. IMPRESSION: BI-RADS 0 Persistent density retroareolar left breast slightly medial to the nipple line. Further evaluation of this area with ultrasound is recommended and will be performed today. ACR BI-RADS Category 0: Incomplete. (Needs additional imaging evaluation). Result letter will be mailed to the patient. Note: At least 10% of breast cancer is not imaged by mammography. Dictated by: Dictated on workstation # [id number]
--- NOTE | 2022-06-14 15:19 | Diagnostic Imaging Report ---
INDICATION: Left breast density. Patient presents for additional views. Correlation is made with diagnostic mammogram earlier earlier the same day and screening mammogram from 05/23/2022. Sonographic interrogation of the retroareolar left breast was performed. There is a small cluster of cysts noted in the retroareolar slightly medial aspect measuring 11 mm x 4 mm x 9 mm. This likely accounts for the mammographic density. No internal vascularity is seen. No solid mass is detected. IMPRESSION: Small cluster of cysts retroareolar slightly medial left breast correlating with the mammographic density. The patient may return to routine annual screening mammography. ACR BI-RADS Category 2: Benign findings. Result letter will be mailed to the patient. Note: At least 10% of breast cancer is not imaged by mammography. BI-RADS Category 2 Dictated by: Dictated on workstation # [id number]
== END ==
PROVIDERS: ATTEND Nurse Practitioner Family
DX: N60.12 Diffuse cystic mastopathy of left breast (principal)
CPT/HCPCS: 76642; 77065; G0279